=== PATIENT | female | born 1990 | race Caucasian/White ===

== ENCOUNTER 2024-02-17 18:41 | Inpatient (IN) | payer OTHER, SELFPAY ==
[2024-02-17 20:00] VITALS: BP 106/64; PULSE 88; RESP 16; TEMP 38.1; O2SAT 98
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
[2024-02-17 22:14] VITALS: BMI 19.6
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
[2024-02-17] MEDS: Hydrocortisone 2.5 % Rectal Cr 30 GM TUBE 1 APPL PR (22:46)
[2024-02-17] MEDS: Mirtazapine 7.5 MG TABLET PO (22:47)
[2024-02-18 00:05] LABS: CDiff Gene PCR NEGATIVE (Negative)
--- NOTE | 2024-02-18 07:20 | PHA.MEDREC ---
Pharmacy Consult ? Medication Reconciliation Pharmacy reviewed med rec done by nursing. No Known Home Meds confirmed and after looking in claims and updating it, it does not look like the patient is taking anything right now.
[2024-02-18 07:40] VITALS: BP 105/62; PULSE 66; RESP 14; TEMP 36.4; O2SAT 96
--- NOTE | 2024-02-18 09:22 | P.HPPS_ITS ---
HPI Date of Service: 02/18/24 Chief Complaint: Alcohol abuse Sources of Information: patient interviewed, chart reviewed and crisis/core team assessment reviewed HPI Subjective Notes: Pitts Warning and Conditional Voluntary Narrative: Patient is a 33-year-old female with history of MDD, PTSD, opiate use disorder, cocaine use disorder, alcohol use disorder and polysubstance use disorder who presented to ER due to suicidal ideation secondary to increased depression from not having her medications and life stressors. Per crisis report, patient arrived to ER making vague suicidal statements, reporting severe depression and anxiety. patient reports being discharged from [facility] correctional facility 2 days ago and not receiving her medications. She reported experiencing brain zaps due to being off Effexor. denies SI/HI/AH/VH. She reports drinking daily and using various substances. Utox positive for cocaine and fentanyl. Patient does not have any outpatient psychiatric providers. Her last inpatient psychiatric admission was in 2008. During admission assessment, patient presents alert and oriented x3, calm and cooperative. Patient reports feeling anxious and depressed ; patient stated, I came to the hospital to detox and get mental health meds. I wake up with anxiety. I do not think anything is making me depressed, I have just always been depressed. I want to go to a substance abuse program . Patient reports drinking a sleeve of nips daily, using 5 bundles of fentanyl daily, smoking crack daily, taking benzodiazepines (xanax and ativan) and taking LSD every few days. denies SI/HI/VH/AH. She reports leaving a correctional facility on the and not receiving her medications while in the correctional facility. She can not recall past medications or dosages. However, she does reports she was taking Effexor recently. Patient reports it was difficult to tell if Effexor was beneficial due to continued substance use. She reports history of section 35 from 11/24/23-12/24/23; she reports relapsing due to going back to the same places and knowing the same people . Patient is requesting referrals to outpatient providers and being restarted on Effexor. Past Psychiatric History: pt reports hx of SI attempts via OD; last attempt was in 2020. hx of cutting; last occurrence was in 2011. She reports hx of multiple detox and inpatient psychiatric admissions. does not have outpatient providers at this time. can not recall past medication trials. Medical Evaluation Reviewed: Yes PMFSH Medical History (Updated 02/18/24 @ 15:33 by Ewa Hernandez NP) Mild intermittent asthma Hepatitis C Polysubstance abuse Family History: Mother: Bipolar d/o Father: Depression Social History: homeless. single. 2 kids (11,13 y/o. live with her mother in [place]). disability. Substance History: hx of fentanyl, crack, LSD, marijuana, alcohol, mushrooms, heroin, benzodiazepines. Trauma History: yes Diagnostics Vital Signs (24Hr): Vital Signs - 24 hr 02/17/24 20:00 02/18/24 07:40 Temperature 100.5 F H 97.5 F Pulse Rate 88 66 Respiratory Rate 16 14 Blood Pressure 106/64 105/62 Pulse Oximetry 98 96 Oxygen Delivery Method Room Air Room Air BMI result Body Mass Index 19.6 Labs Labs: Laboratory Results - last 48 hr 02/17/24 23:00 C. difficile Tox B Gene NEGATIVE Meds/Allergies Meds Home Medications ?Medication ?Instructions ?Recorded ?Confirmed ?Type No Known Home Meds 02/17/24 02/17/24 History Allergies Allergies Allergy/AdvReac Type Severity Reaction Status Date / Time Unable to Assess Allergy Verified 02/17/24 18:58 Mental Status Exam Mental Status Exam Narrative: Pt is alert and oriented; behavior is cooperative, calm; dressed in casual attire; mood is described as anxious and depressed ; eye contact appropriate; Speech is normal rate, volume and not pressured; thought process is organized and goal directed; Thought content is on tx; denies SI/HI/VH/AH. Assessment & Plan Assessment & Plan (1) MDD (major depressive disorder), recurrent episode, severe: Status: Acute Code(s): F33.2 - Major depressive disorder, recurrent severe without psychotic features (2) PTSD (post-traumatic stress disorder): Status: Acute Code(s): F43.10 - Post-traumatic stress disorder, unspecified (3) Opioid use disorder: Status: Acute Code(s): F11.90 - Opioid use, unspecified, uncomplicated (4) Cocaine use disorder: Status: Acute Code(s): F14.10 - Cocaine abuse, uncomplicated (5) Alcohol use disorder: Status: Acute Code(s): F10.90 - Alcohol use, unspecified, uncomplicated (6) Benzodiazepine abuse: Status: Acute Code(s): F13.10 - Sedative, hypnotic or anxiolytic abuse, uncomplicated (7) Polysubstance abuse: Status: Acute Code(s): F19.10 - Other psychoactive substance abuse, uncomplicated (8) Homelessness: Status: Acute Code(s): Z59.00 - Homelessness unspecified Plan Patient is a 33-year-old female with history of MDD, PTSD, opiate use disorder, cocaine use disorder, alcohol use disorder and polysubstance use disorder who presented to ER due to suicidal ideation secondary to increased depression from not having her medications and life stressors. Plan: CV 15 minute safety checks Start: Effexor XR 37.5 mg p.o. daily Encourage groups Obtain collateral Consult to addiction medicine Referral to outpatient psychiatric providers Discharge planning Patient educated on: diagnosis, medication risk/benefits and substance abuse Reason for continued inpatient stay Substantial Risk for: med/psych decompensation Statement Statement: I have reviewed the history and physical and performed a pertinent examination on my patient. No changes have occurred unless specified. If the History and Physical was not performed prior to admission, the Hospitalist's service will be consulted for completing the admission physical. Time Spent With Patient Time: Total time managing care of this patient today _60___ minutes.
--- NOTE | 2024-02-18 13:55 | MHC.RECOVRN ---
Met with pt in 319 after receiving Addiction Medicine consult and text from RN that pt is interested in Suboxone initiation. Pt sitting on bed, awake, alert, easily engages in conversation, appears comfortable. Pt reports heroin/fentanyl use, 5 bundles daily, IN, last use 02/16/24 while at [facility]. Pt reports crack cocaine use, 7 grams daily, INH. Pt reports various benzodiazepine use, typically around 3 mg Ativan per week, PO. Pt reports she was Sect 35 at [place] from 11/24/23-12/24/23. Pt [facility] from 01[facility]24-02/10/24. Presented to [facility] on 02/11/24. Pt reports she used substances in [place] as well as when she was in snf. Pt reports being on methadone and Suboxone in the past, most recently transitioned from methadone to Suboxone while at [facility] [place]. Pt reports last receiving Suboxone in early January. Pt currently reports withdrawal symptoms including back pain/body aches, feeling hot/cold, restless, nausea, and diarrhea. Pt, however, does not think diarrhea is related to withdrawal. Pt is interested in restarting Suboxone. Denies other questions or concerns for t/w. Discussed with Shannen Whalen APRN.
[2024-02-18] MEDS: Venlafaxine HCl ER 37.5 MG CAP.ER.24H PO (15:57)
[2024-02-18] MEDS: Acetaminophen 325 MG TABLET 650 MG PO (15:57)
[2024-02-18] MEDS: Loperamide HCl 2 MG CAPSULE 4 MG PO (15:58)
[2024-02-18] MEDS: Magnesium Hydrox/Alum Hydrox 30 ML ORAL.SUSP PO (15:58)
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
[2024-02-18 21:00] VITALS: BP 110/68; PULSE 72; RESP 16; TEMP 36.6; O2SAT 97
[2024-02-18] MEDS: cloNIDine HCL 0.1 MG TABLET PO (21:34)
[2024-02-18] MEDS: Mirtazapine 7.5 MG TABLET PO (21:34)
[2024-02-19 07:20] VITALS: BP 106/62; PULSE 77; RESP 16; TEMP 36.9; O2SAT 98
[2024-02-19] MEDS: Acetaminophen 325 MG TABLET 650 MG PO (08:43)
[2024-02-19] MEDS: cloNIDine HCL 0.1 MG TABLET PO ×3 (08:43→21:50)
[2024-02-19] MEDS: Buprenorphine/Naloxone 8/2 mg FILM 2 FILM SUBLINGUAL (08:43)
[2024-02-19] MEDS: Venlafaxine HCl ER 37.5 MG CAP.ER.24H PO (08:43)
[2024-02-19] MEDS: Ondansetron ODT 8 MG TAB.RAPDIS TRANSLINGU (08:43)
--- NOTE | 2024-02-19 09:02 | HO.PSYCHPN ---
Subjective Subjective Date of Service: 02/19/24 Reason For Visit: Alcohol abuse Subjective Notes: Conditional Voluntary Interim History: Active on unit, attending groups. pt reports feeling better with withdrawal symptoms after taking suboxone. She continues to report depression and anxiety; pt stated, I want to get into a program and go to a sober house then go to [place] so I can be sober when I'm with my kids . Pt reports sleeping well last night. denies SI/HI/VH/AH. Medication Compliance: Yes Side effects from medications: No Attending Groups: Yes Review of Systems Constitutional: Reports as per HPI Eyes: Reports as per HPI Reports as per HPI Cardiovascular: Reports as per HPI Respiratory: Reports as per HPI Gastrointestinal: Reports as per HPI Musculoskeletal: Reports as per HPI Skin/Breast: Reports as per HPI Reports as per HPI Psychiatric: Reports as per HPI Endocrine: Reports as per HPI Hematologic/Lymphatic: Reports as per HPI Allergic/Immunologic: Reports as per HPI Mental Status Exam Mental Status Exam Narrative: Pt is alert and oriented; behavior is cooperative, calm; dressed in casual attire; mood is described as anxious and depressed ; eye contact appropriate; Speech is normal rate, volume and not pressured; thought process is organized and goal directed; Thought content is on tx; denies SI/HI/VH/AH. Diagnostics Vital Signs (24Hr): Vital Signs - 24 hr 02/18/24 21:00 02/19/24 07:20 Temperature 97.8 F 98.5 F Pulse Rate 72 77 Respiratory Rate 16 16 Blood Pressure 110/68 106/62 Pulse Oximetry 97 98 Oxygen Delivery Method Room Air Room Air BMI result Body Mass Index 19.6 Labs Labs: Laboratory Results - last 48 hr 02/17/24 23:00 C. difficile Tox B Gene NEGATIVE Medications Medications Current Medications Acetaminophen (Acetaminophen 325 Mg Tablet) 650 mg PO Q6H PRN PRN Reason: Headache/Pain Mild Scale (1-3) Last Admin: 02/19/24 08:43 Dose: 650 mg Al Hydroxide/Mg Hydroxide (Magnesium Hydrox/Alum Hydrox 30 Ml Oral.Susp) 30 ml PO Q6H PRN PRN Reason: Heartburn/Nausea Last Admin: 02/18/24 15:58 Dose: 30 ml Albuterol Sulfate (Albuterol Sulfate 90 Mcg 8 Gm Inhaler) 2 puff INHALE RQ4H PRN PRN Reason: Shortness of Breath/Wheezing Clonidine HCl (Clonidine Hcl 0.1 Mg Tablet) 0.1 mg PO Q4H PRN; Protocol PRN Reason: signs of opioid withdrawal Last Admin: 02/19/24 08:43 Dose: 0.1 mg Dicyclomine HCl (Dicyclomine Hcl 10 Mg Capsule) 10 mg PO QIDACHS PRN PRN Reason: spasm Hydrocortisone (Hydrocortisone 2.5 % Rectal Cr 30 Gm Tube) 1 appl [place] BID [facility] Last Admin: 02/19/24 09:02 Dose: Not Given Hydroxyzine HCl (Hydroxyzine Hcl 25 Mg Tablet) 25 mg PO Q6H PRN PRN Reason: Anxiety Ibuprofen (Ibuprofen 600 Mg Tablet) 600 mg PO Q6H PRN PRN Reason: pain (pain scale 0-10) Loperamide HCl (Loperamide Hcl 2 Mg Capsule) 4 mg PO Q4H PRN PRN Reason: Diarrhea Last Admin: 02/18/24 15:58 Dose: 4 mg Magnesium Hydroxide (Milk Of Magnesia 30 Ml Oral.Susp) 30 ml PO DAILY PRN PRN Reason: Constipation Mirtazapine (Mirtazapine 7.5 Mg Tablet) 7.5 mg PO BEDTIME MRX1 [facility] Last Admin: 02/18/24 22:13 Dose: Not Given Nicotine (Nicotine 21 Mg Patch.Td24) 21 mg TRANSDERMA DAILY [facility] Last Admin: 02/18/24 11:21 Dose: Not Given Nicotine Polacrilex (Nicotine Polacrilex 2 Mg Gum) 4 mg BUCCAL Q2H PRN PRN Reason: Nicotine Cravings Ondansetron HCl (Ondansetron Odt 8 Mg Tab.Rapdis) 8 mg TRANSLINGU Q12H PRN PRN Reason: Nausea and Vomiting Last Admin: 02/19/24 08:43 Dose: 8 mg Venlafaxine HCl (Venlafaxine Hcl Er 37.5 Mg Cap.Er.24h) 37.5 mg PO DAILY [facility] Last Admin: 02/19/24 08:43 Dose: 37.5 mg Allergies Allergies Allergy/AdvReac Type Severity Reaction Status Date / Time Unable to Assess Allergy Verified 02/17/24 18:58 Assessment & Plan Assessment & Plan (1) MDD (major depressive disorder), recurrent episode, severe: Status: Acute Code(s): F33.2 - Major depressive disorder, recurrent severe without psychotic features (2) PTSD (post-traumatic stress disorder): Status: Acute Code(s): F43.10 - Post-traumatic stress disorder, unspecified (3) Opioid use disorder: Status: Acute Code(s): F11.90 - Opioid use, unspecified, uncomplicated Assessment and Plan: patient not yet ready for suboxone start--requesting to start in the morning continue comfort meds as needed in AM 16mg suboxone X1. After 30-40mins is sx do not improve/or worsen administer additional 8mg film. Continue up to 32mg total administered. will continue to follow until therapeutic dose established (4) Cocaine use disorder: Status: Acute Code(s): F14.10 - Cocaine abuse, uncomplicated (5) Alcohol use disorder: Status: Acute Code(s): F10.90 - Alcohol use, unspecified, uncomplicated (6) Benzodiazepine abuse: Status: Acute Code(s): F13.10 - Sedative, hypnotic or anxiolytic abuse, uncomplicated (7) Homelessness: Status: Acute Code(s): Z59.00 - Homelessness unspecified Plan Patient is a 33-year-old female with history of MDD, PTSD, opiate use disorder, cocaine use disorder, alcohol use disorder and polysubstance use disorder who presented to ER due to suicidal ideation secondary to increased depression from not having her medications and life stressors. Plan: CV 15 minute safety checks Start: Effexor XR 37.5 mg p.o. daily Encourage groups Obtain collateral Consult to addiction medicine Referral to outpatient psychiatric providers Discharge planning 02/18: Active on unit, attending groups. pt reports feeling better with withdrawal symptoms after taking suboxone. She continues to report depression and anxiety; pt stated, I want to get into a program and go to a sober house then go to [place] so I can be sober when I'm with my kids . Pt reports sleeping well last night. denies SI/HI/VH/AH. Patient educated on: diagnosis, medication risk/benefits and therapeutic strategies Reason for continued inpatient stay Substantial Risk for: med/psych decompensation Time Spent With Patient Time: Total time managing care of this patient today _20___ minutes.
[2024-02-19] MEDS: Loperamide HCl 2 MG CAPSULE 4 MG PO (09:08)
--- NOTE | 2024-02-19 10:10 | MHC.RECOVRN ---
AUDIT-C Brief Intervention Pt had positive screen for unhealthy alcohol use on admission, subsequently met with t/w to discuss alcohol use and recovery supports/options. This policy writer typist met with patient to discuss current alcohol use and concerns related to increased risk of alcohol related problems.? Pt reports 10 nips whiskey daily x 1 year. Discussed how alcohol use has impacted health, including negative impact on overall mental health. Withdrawal History: reports history of withdrawal seizures Treatment History: denies treatment for alcohol use Supports:?mom Discussed risk reduction strategies including drinking below the recommended limit. Provided pt with written resources including information on inpatient and outpatient treatment, ERNESTINE, harm reduction, and recovery coaching. Pt plans to continue inpatient treatment and eventually move to [place] to be with mom and children. Pt provided with t/w contact information if questions or concerns arise. Denies other questions or concerns at this time.?
--- NOTE | 2024-02-19 10:12 | MHC.RECOVRN ---
Met with pt in 319 to follow up after Suboxone initiation. Pt laying in bed, awake, alert, easily engages in conversation. Denies current withdrawal symptoms. Pt reports prior to receiving Suboxone having nausea, diarrhea, feeling hot/cold, and watery eyes. Pt states I feel normal now. Denies questions or concerns for t/w. Shannen Whalen APRN, aware.
--- NOTE | 2024-02-19 12:22 | HO.ADDICTPRO ---
Subjective Subjective Date of Service: 02/19/24 Reason For Visit: Alcohol abuse Interim History: Patient seen in follow up This morning recieved 16mg suboxone with positive effect per patient report and evidenced by patient in [place] and eating breakfast When seen by this automotive service writer several hours later, patient in bed, stating she feels cold. Reporting she doesn't feel terrible , but not as good as she was feeling earlier. Denies any other possible withdrawal sx Review of Systems Constitutional: Reports as per HPI Mental Status Exam Mental Status Exam Patient Appearance: Appropriate Level of Consciousness: Awake and Appropriate Patient Behavior: Appropriate Mood Description: Calm Affect Description: Calm Speech Pattern: Clear Diagnostics Vital Signs (24Hr): Vital Signs - 24 hr 02/18/24 21:00 02/19/24 07:20 Temperature 97.8 F 98.5 F Pulse Rate 72 77 Respiratory Rate 16 16 Blood Pressure 110/68 106/62 Pulse Oximetry 97 98 Oxygen Delivery Method Room Air Room Air BMI result Body Mass Index 19.6 Labs Labs: Laboratory Results - last 48 hr 02/17/24 23:00 C. difficile Tox B Gene NEGATIVE Medications Medications Current Medications Acetaminophen (Acetaminophen 325 Mg Tablet) 650 mg PO Q6H PRN PRN Reason: Headache/Pain Mild Scale (1-3) Last Admin: 02/19/24 08:43 Dose: 650 mg Al Hydroxide/Mg Hydroxide (Magnesium Hydrox/Alum Hydrox 30 Ml Oral.Susp) 30 ml PO Q6H PRN PRN Reason: Heartburn/Nausea Last Admin: 02/18/24 15:58 Dose: 30 ml Albuterol Sulfate (Albuterol Sulfate 90 Mcg 8 Gm Inhaler) 2 puff INHALE RQ4H PRN PRN Reason: Shortness of Breath/Wheezing Clonidine HCl (Clonidine Hcl 0.1 Mg Tablet) 0.1 mg PO Q4H PRN; Protocol PRN Reason: signs of opioid withdrawal Last Admin: 02/19/24 08:43 Dose: 0.1 mg Dicyclomine HCl (Dicyclomine Hcl 10 Mg Capsule) 10 mg PO QIDACHS PRN PRN Reason: spasm Hydrocortisone (Hydrocortisone 2.5 % Rectal Cr 30 Gm Tube) 1 appl [place] BID [facility] Last Admin: 02/19/24 09:02 Dose: Not Given Hydroxyzine HCl (Hydroxyzine Hcl 25 Mg Tablet) 25 mg PO Q6H PRN PRN Reason: Anxiety Ibuprofen (Ibuprofen 600 Mg Tablet) 600 mg PO Q6H PRN PRN Reason: pain (pain scale 0-10) Loperamide HCl (Loperamide Hcl 2 Mg Capsule) 4 mg PO Q4H PRN PRN Reason: Diarrhea Last Admin: 02/19/24 09:08 Dose: 4 mg Magnesium Hydroxide (Milk Of Magnesia 30 Ml Oral.Susp) 30 ml PO DAILY PRN PRN Reason: Constipation Mirtazapine (Mirtazapine 7.5 Mg Tablet) 7.5 mg PO BEDTIME MRX1 [facility] Last Admin: 02/18/24 22:13 Dose: Not Given Nicotine (Nicotine 21 Mg Patch.Td24) 21 mg TRANSDERMA DAILY [facility] Last Admin: 02/19/24 09:09 Dose: Not Given Nicotine Polacrilex (Nicotine Polacrilex 2 Mg Gum) 4 mg BUCCAL Q2H PRN PRN Reason: Nicotine Cravings Ondansetron HCl (Ondansetron Odt 8 Mg Tab.Rapdis) 8 mg TRANSLINGU Q12H PRN PRN Reason: Nausea and Vomiting Last Admin: 02/19/24 08:43 Dose: 8 mg Venlafaxine HCl (Venlafaxine Hcl Er 37.5 Mg Cap.Er.24h) 37.5 mg PO DAILY [facility] Last Admin: 02/19/24 08:43 Dose: 37.5 mg Allergies Allergies Allergy/AdvReac Type Severity Reaction Status Date / Time Unable to Assess Allergy Verified 02/17/24 18:58 Assessment & Plan Assessment & Plan (1) Opioid use disorder: Status: Acute Code(s): F11.90 - Opioid use, unspecified, uncomplicated Assessment and Plan: suboxone 8mg PRN dose available if patient requests daily dosing 8mg BID --patient reports this dose has been effective in the past PRN meds as appropriate Total time managing care of this patient today __15__ minutes.
[2024-02-19] MEDS: Ibuprofen 600 MG TABLET PO ×2 (13:31→21:50)
[2024-02-19 13:32] VITALS: BP 90/51
[2024-02-19 20:00] VITALS: BP 77/51; PULSE 65; RESP 14; TEMP 36.8; O2SAT 99
[2024-02-19 20:05] VITALS: BP 95/56
[2024-02-19 21:50] VITALS: BP 97/56
[2024-02-19] MEDS: Mirtazapine 7.5 MG TABLET PO (21:50)
[2024-02-20 08:00] VITALS: PULSE 69
[2024-02-20 08:30] VITALS: BP 97/55; PULSE 69; RESP 18; TEMP 36.4; O2SAT 99
[2024-02-20] MEDS: Venlafaxine HCl ER 37.5 MG CAP.ER.24H PO (08:31)
[2024-02-20] MEDS: Buprenorphine/Naloxone 8/2 mg FILM 1 FILM SUBLINGUAL ×3 (08:32→16:55)
--- NOTE | 2024-02-20 09:32 | P.PNPSI_ITS ---
Subjective Subjective Date of Service: 02/20/24 Reason For Visit: Alcohol abuse Subjective Notes: Conditional Voluntary Interim History: Keeping to self. Pt reports feeling better physically from withdrawal symptoms, however, continues to report anxiety and depression. Pt stated, I'm not even tired but I feel like I have no motivation to get out of bed and go to groups . Pt reports she will try to attend groups today rather than staying in her room. denies SI/HI/VH/AH. Increase Effexor to 75mg PO daily Start: Buspar 5mg PO BID Medication Compliance: Yes Side effects from medications: No Attending Groups: No Review of Systems Constitutional: Reports as per HPI Eyes: Reports as per HPI Reports as per HPI Cardiovascular: Reports as per HPI Respiratory: Reports as per HPI Gastrointestinal: Reports as per HPI Musculoskeletal: Reports as per HPI Skin/Breast: Reports as per HPI Reports as per HPI Psychiatric: Reports as per HPI Endocrine: Reports as per HPI Hematologic/Lymphatic: Reports as per HPI Allergic/Immunologic: Reports as per HPI Mental Status Exam Mental Status Exam Narrative: Pt is alert and oriented; behavior is cooperative, calm; dressed in casual attire; mood is described as anxious and depressed ; eye contact appropriate; Speech is normal rate, volume and not pressured; thought process is organized and goal directed; Thought content is on tx; denies SI/HI/VH/AH. Diagnostics Vital Signs (24Hr): Vital Signs - 24 hr 02/19/24 13:32 02/19/24 20:00 02/19/24 20:05 Temperature 98.2 F Pulse Rate 65 Respiratory Rate 14 Blood Pressure 90/51 L 77/51 L 95/56 L Pulse Oximetry 99 Oxygen Delivery Method Room Air 02/19/24 21:50 02/20/24 08:30 Temperature 97.6 F Pulse Rate 69 Respiratory Rate 18 Blood Pressure 97/56 L 97/55 L Pulse Oximetry 99 Oxygen Delivery Method Room Air BMI result Body Mass Index 19.6 Medications Medications Current Medications Acetaminophen (Acetaminophen 325 Mg Tablet) 650 mg PO Q6H PRN PRN Reason: Headache/Pain Mild Scale (1-3) Last Admin: 02/19/24 08:43 Dose: 650 mg Al Hydroxide/Mg Hydroxide (Magnesium Hydrox/Alum Hydrox 30 Ml Oral.Susp) 30 ml PO Q6H PRN PRN Reason: Heartburn/Nausea Last Admin: 02/18/24 15:58 Dose: 30 ml Albuterol Sulfate (Albuterol Sulfate 90 Mcg 8 Gm Inhaler) 2 puff INHALE RQ4H PRN PRN Reason: Shortness of Breath/Wheezing Buprenorphine/Naloxone (Buprenorphine/Naloxone 8/2 Mg Film) 1 film SUBLINGUAL DAILY PRN PRN Reason: Opiate Withdrawal Buprenorphine/Naloxone (Buprenorphine/Naloxone 8/2 Mg Film) 1 film SUBLINGUAL BID@0800,1700 COUNTS INCLUDE 234 BEDS AT THE [facility] Last Admin: 02/20/24 08:32 Dose: 1 film Clonidine HCl (Clonidine Hcl 0.1 Mg Tablet) 0.1 mg PO Q4H PRN; Protocol PRN Reason: signs of opioid withdrawal Last Admin: 02/19/24 21:50 Dose: 0.1 mg Dicyclomine HCl (Dicyclomine Hcl 10 Mg Capsule) 10 mg PO QIDACHS PRN PRN Reason: spasm Hydrocortisone (Hydrocortisone 2.5 % Rectal Cr 30 Gm Tube) [address] BID COUNTS INCLUDE 234 BEDS AT THE [facility] Last Admin: 02/20/24 08:33 Dose: Not Given Hydroxyzine HCl (Hydroxyzine Hcl 25 Mg Tablet) 25 mg PO Q6H PRN PRN Reason: Anxiety Ibuprofen (Ibuprofen 600 Mg Tablet) 600 mg PO Q6H PRN PRN Reason: pain (pain scale 0-10) Last Admin: 02/19/24 21:50 Dose: 600 mg Loperamide HCl (Loperamide Hcl 2 Mg Capsule) 4 mg PO Q4H PRN PRN Reason: Diarrhea Last Admin: 02/19/24 09:08 Dose: 4 mg Magnesium Hydroxide (Milk Of Magnesia 30 Ml Oral.Susp) 30 ml PO DAILY PRN PRN Reason: Constipation Mirtazapine (Mirtazapine 7.5 Mg Tablet) 7.5 mg PO BEDTIME MRX1 COUNTS INCLUDE 234 BEDS AT THE [facility] Last Admin: 02/19/24 23:03 Dose: Not Given Nicotine (Nicotine 21 Mg Patch.Td24) 21 mg TRANSDERMA DAILY COUNTS INCLUDE 234 BEDS AT THE [facility] Last Admin: 02/20/24 08:33 Dose: Not Given Nicotine Polacrilex (Nicotine Polacrilex 2 Mg Gum) 4 mg BUCCAL Q2H PRN PRN Reason: Nicotine Cravings Ondansetron HCl (Ondansetron Odt 8 Mg Tab.Rapdis) 8 mg TRANSLINGU Q12H PRN PRN Reason: Nausea and Vomiting Last Admin: 02/19/24 08:43 Dose: 8 mg Venlafaxine HCl (Venlafaxine Hcl Er 37.5 Mg Cap.Er.24h) 37.5 mg PO DAILY [facility] Last Admin: 02/20/24 08:31 Dose: 37.5 mg Allergies Allergies Allergy/AdvReac Type Severity Reaction Status Date / Time Unable to Assess Allergy Verified 02/17/24 18:58 Assessment & Plan Assessment & Plan (1) MDD (major depressive disorder), recurrent episode, severe: Status: Acute Code(s): F33.2 - Major depressive disorder, recurrent severe without psychotic features (2) PTSD (post-traumatic stress disorder): Status: Acute Code(s): F43.10 - Post-traumatic stress disorder, unspecified (3) Opioid use disorder: Status: Acute Code(s): F11.90 - Opioid use, unspecified, uncomplicated Assessment and Plan: * suboxone 8mg PRN dose available if patient requests * daily dosing 8mg BID --patient reports this dose has been effective in the past * PRN meds as appropriate (4) Alcohol use disorder: Status: Acute Code(s): F10.90 - Alcohol use, unspecified, uncomplicated (5) Cocaine use disorder: Status: Acute Code(s): F14.10 - Cocaine abuse, uncomplicated (6) Benzodiazepine abuse: Status: Acute Code(s): F13.10 - Sedative, hypnotic or anxiolytic abuse, uncomplicated (7) Homelessness: Status: Acute Code(s): Z59.00 - Homelessness unspecified Plan Patient is a 33-year-old female with history of MDD, PTSD, opiate use disorder, cocaine use disorder, alcohol use disorder and polysubstance use disorder who presented to ER due to suicidal ideation secondary to increased depression from not having her medications and life stressors. Plan: CV 15 minute safety checks Start: Effexor XR 37.5 mg p.o. daily Encourage groups Obtain collateral Consult to addiction medicine Referral to outpatient psychiatric providers Discharge planning 02/18: Active on unit, attending groups. pt reports feeling better with withdrawal symptoms after taking suboxone. She continues to report depression and anxiety; pt stated, I want to get into a program and go to a sober house then go to [place] so I can be sober when I'm with my kids . Pt reports sleeping well last night. denies SI/HI/VH/AH. 02/19: Keeping to self. Pt reports feeling better physically from withdrawal symptoms, however, continues to report anxiety and depression. Pt stated, I'm not even tired but I feel like I have no motivation to get out of bed and go to groups . Pt reports she will try to attend groups today rather than staying in her room. denies SI/HI/VH/AH. Increase Effexor to 75mg PO daily Start: Buspar 5mg PO BID Patient educated on: diagnosis, medication risk/benefits and therapeutic strategies Reason for continued inpatient stay Substantial Risk for: med/psych decompensation Time Spent With Patient Time: Total time managing care of this patient today _20___ minutes.
--- NOTE | 2024-02-20 10:52 | MHC.RECOVRN ---
Met with pt in 319 to follow up and provide support. Pt received Suboxone, 8 mg, this morning. Has not utilized prn Suboxone ordered. Pt laying in bed, eyes closed, wakes to voice, appears comfortable and easily engages in conversation. Pt reports feeling great, denies withdrawal symptoms, grateful to have been restarted on [facility]. Pt denies questions or concerns for t/w. Shannen Whalen APRN, aware.
[2024-02-20] MEDS: busPIRone HCl 5 MG TABLET PO ×2 (14:27→20:32)
[2024-02-20 16:00] VITALS: PULSE 69
[2024-02-20 19:55] VITALS: BP 128/66; PULSE 86; RESP 14; TEMP 37.3; O2SAT 98
[2024-02-20] MEDS: Ibuprofen 600 MG TABLET PO (20:32)
[2024-02-20] MEDS: Mirtazapine 7.5 MG TABLET PO (20:32)
[2024-02-21 07:10] VITALS: BP 105/66; PULSE 78; RESP 14; TEMP 37.1; O2SAT 98
[2024-02-21 07:17] VITALS: BP 105/66
[2024-02-21] MEDS: cloNIDine HCL 0.1 MG TABLET PO ×2 (07:17→11:26)
--- NOTE | 2024-02-21 07:39 | P.PNPSI_ITS ---
Subjective Subjective Date of Service: 02/21/24 Reason For Visit: Alcohol abuse Subjective Notes: Conditional Voluntary Interim History: overall doing okay without evidence of withdrawal. Is depressed and anxious and withdrawn. Attending some groups. Intermittent thoughts of but no active SI. Hopeful she can speak with her primary team around Adderall which she has been on in the past and reports this helps with overall anxiety and decreased in OCD type thoughts and behaviors. Tearful. Regarding anxiety we discussed gabapentin. Reports unable to take clonidine at higher doses due to blood pressure issues. Reported hallucinating and Seroquel. Review of Systems Review of Systems unremarkable Mental Status Exam Mental Status Exam Narrative: Pt is alert and oriented; behavior is cooperative, calm; dressed in casual attire; mood is described as so anxious ; eye contact appropriate; Speech is normal rate, volume and not pressured; thought process is organized and goal directed; Thought content is on tx; denies SI/HI/VH/AH. Diagnostics Vital Signs (24Hr): Vital Signs - 24 hr 02/20/24 08:30 02/20/24 19:55 02/21/24 07:17 Temperature 97.6 F 99.1 F Pulse Rate 69 86 Respiratory Rate 18 14 Blood Pressure 97/55 L 128/66 105/66 Pulse Oximetry 99 98 Oxygen Delivery Method Room Air Room Air BMI result Body Mass Index 19.6 Medications Medications Current Medications Acetaminophen (Acetaminophen 325 Mg Tablet) 650 mg PO Q6H PRN PRN Reason: Headache/Pain Mild Scale (1-3) Last Admin: 02/19/24 08:43 Dose: 650 mg Al Hydroxide/Mg Hydroxide (Magnesium Hydrox/Alum Hydrox 30 Ml Oral.Susp) 30 ml PO Q6H PRN PRN Reason: Heartburn/Nausea Last Admin: 02/18/24 15:58 Dose: 30 ml Albuterol Sulfate (Albuterol Sulfate 90 Mcg 8 Gm Inhaler) 2 puff INHALE RQ4H PRN PRN Reason: Shortness of Breath/Wheezing Buprenorphine/Naloxone (Buprenorphine/Naloxone 8/2 Mg Film) 1 film SUBLINGUAL DAILY PRN PRN Reason: Opiate Withdrawal Last Admin: 02/20/24 14:27 Dose: 1 film Buprenorphine/Naloxone (Buprenorphine/Naloxone 8/2 Mg Film) 1 film SUBLINGUAL BID@0800,1700 [facility] Last Admin: 02/20/24 16:55 Dose: 1 film Buspirone HCl (Buspirone Hcl 5 Mg Tablet) 5 mg PO BID [facility] Last Admin: 02/20/24 20:32 Dose: 5 mg Clonidine HCl (Clonidine Hcl 0.1 Mg Tablet) 0.1 mg PO Q4H PRN; Protocol PRN Reason: signs of opioid withdrawal Last Admin: 02/21/24 07:17 Dose: 0.1 mg Dicyclomine HCl (Dicyclomine Hcl 10 Mg Capsule) 10 mg PO QIDACHS PRN PRN Reason: spasm Hydrocortisone (Hydrocortisone 2.5 % Rectal Cr 30 Gm Tube) 1 appl [place] BID [facility] Last Admin: 02/20/24 23:30 Dose: Not Given Hydroxyzine HCl (Hydroxyzine Hcl 25 Mg Tablet) 25 mg PO Q6H PRN PRN Reason: Anxiety Ibuprofen (Ibuprofen 600 Mg Tablet) 600 mg PO Q6H PRN PRN Reason: pain (pain scale 0-10) Last Admin: 02/20/24 20:32 Dose: 600 mg Loperamide HCl (Loperamide Hcl 2 Mg Capsule) 4 mg PO Q4H PRN PRN Reason: Diarrhea Last Admin: 02/19/24 09:08 Dose: 4 mg Magnesium Hydroxide (Milk Of Magnesia 30 Ml Oral.Susp) 30 ml PO DAILY PRN PRN Reason: Constipation Mirtazapine (Mirtazapine 7.5 Mg Tablet) 7.5 mg PO BEDTIME MRX1 [facility] Last Admin: 02/20/24 23:35 Dose: Not Given Nicotine (Nicotine 21 Mg Patch.Td24) 21 mg TRANSDERMA DAILY PRN PRN Reason: Nicotine Cravings Nicotine Polacrilex (Nicotine Polacrilex 2 Mg Gum) 4 mg BUCCAL Q2H PRN PRN Reason: Nicotine Cravings Ondansetron HCl (Ondansetron Odt 8 Mg Tab.Rapdis) 8 mg TRANSLINGU Q12H PRN PRN Reason: Nausea and Vomiting Last Admin: 02/19/24 08:43 Dose: 8 mg Venlafaxine HCl (Venlafaxine Hcl Er 75 Mg Cap.Er.24h) 75 mg PO DAILY [facility] Allergies Allergies Allergy/AdvReac Type Severity Reaction Status Date / Time Unable to Assess Allergy Verified 02/17/24 18:58 Assessment & Plan Assessment & Plan (1) MDD (major depressive disorder), recurrent episode, severe: Status: Acute Code(s): F33.2 - Major depressive disorder, recurrent severe without psychotic features (2) PTSD (post-traumatic stress disorder): Status: Acute Code(s): F43.10 - Post-traumatic stress disorder, unspecified (3) Opioid use disorder: Status: Acute Code(s): F11.90 - Opioid use, unspecified, uncomplicated Assessment and Plan: * suboxone 8mg PRN dose available if patient requests * daily dosing 8mg BID --patient reports this dose has been effective in the past * PRN meds as appropriate (4) Alcohol use disorder: Status: Acute Code(s): F10.90 - Alcohol use, unspecified, uncomplicated (5) Cocaine use disorder: Status: Acute Code(s): F14.10 - Cocaine abuse, uncomplicated (6) Benzodiazepine abuse: Status: Acute Code(s): F13.10 - Sedative, hypnotic or anxiolytic abuse, uncomplicated (7) Homelessness: Status: Acute Code(s): Z59.00 - Homelessness unspecified Plan Patient is a 33-year-old female with history of MDD, PTSD, opiate use disorder, cocaine use disorder, alcohol use disorder and polysubstance use disorder who presented to ER due to suicidal ideation secondary to increased depression from not having her medications and life stressors. Plan: CV 15 minute safety checks Start: Effexor XR 37.5 mg p.o. daily Encourage groups Obtain collateral Consult to addiction medicine Referral to outpatient psychiatric providers Discharge planning 02/18: Active on unit, attending groups. pt reports feeling better with withdrawal symptoms after taking suboxone. She continues to report depression and anxiety; pt stated, I want to get into a program and go to a sober house then go to [place] so I can be sober when I'm with my kids . Pt reports sleeping well last night. denies SI/HI/VH/AH. 02/19: Keeping to self. Pt reports feeling better physically from withdrawal symptoms, however, continues to report anxiety and depression. Pt stated, I'm not even tired but I feel like I have no motivation to get out of bed and go to groups . Pt reports she will try to attend groups today rather than staying in her room. denies SI/HI/VH/AH. Increase Effexor to 75mg PO daily Start: Buspar 5mg PO BID 02/21/2024: Start gabapentin 100 mg as needed. Discontinue clonidine is unable to tolerate save due to blood pressure issues. Reason for continued inpatient stay Substantial Risk for: inability to function Time Spent With Patient Time: Total time managing care of this patient today ____ minutes.
[2024-02-21 08:00] VITALS: PULSE 78
[2024-02-21] MEDS: busPIRone HCl 5 MG TABLET PO ×2 (08:27→20:58)
[2024-02-21] MEDS: Buprenorphine/Naloxone 8/2 mg FILM 1 FILM SUBLINGUAL ×2 (08:27→16:45)
[2024-02-21] MEDS: Venlafaxine HCl ER 75 MG CAP.ER.24H PO (08:27)
[2024-02-21 11:25] VITALS: BP 100/63; PULSE 79
[2024-02-21] MEDS: Gabapentin 100 MG CAPSULE PO (16:44)
[2024-02-21 19:20] VITALS: BP 102/58; PULSE 78; RESP 15; TEMP 36.9; O2SAT 97
[2024-02-21] MEDS: Mirtazapine 7.5 MG TABLET PO (20:58)
[2024-02-21] MEDS: hydrOXYzine HCL 50 MG TABLET PO (21:02)
[2024-02-22] MEDS: Gabapentin 100 MG CAPSULE PO ×2 (04:56→11:26)
[2024-02-22 08:00] VITALS: BP 81/42; PULSE 68; RESP 16; TEMP 36.8; O2SAT 97
[2024-02-22 08:28] VITALS: BP 122/65
[2024-02-22] MEDS: Venlafaxine HCl ER 75 MG CAP.ER.24H PO (08:28)
[2024-02-22] MEDS: busPIRone HCl 5 MG TABLET PO ×2 (08:29→19:29)
[2024-02-22] MEDS: Buprenorphine/Naloxone 8/2 mg FILM 1 FILM SUBLINGUAL ×3 (08:29→17:21)
--- NOTE | 2024-02-22 10:15 | HO.PSYCHPN ---
Subjective Subjective Date of Service: 02/22/24 Reason For Visit: Alcohol abuse Subjective Notes: Conditional Voluntary Interim History: Anxiety high. Mood low. Reports lots of OCD fixations . Hopeful thatprimary team will restart adderal for ADHD. Sleep ok. Discussed anxiety- will increase prn gabapentin and reintroduce clonidine prn. Does not feel hydroxyzine is helpful so will DC same. Second and last weekly dose of fluconazole 300mg ordered for Tinea Versicolor ordered Medication Compliance: Yes Side effects from medications: No Attending Groups: Intermittent Review of Systems Acute medical concerns: No Review of Systems Review of Systems unremarkable Mental Status Exam Mental Status Exam Narrative: Pt is alert and oriented; behavior is cooperative, calm; dressed in casual attire; mood is described as anxious ; eye contact appropriate; Speech is normal rate, volume and not pressured; thought process is organized and goal directed; Thought content is on tx; denies SI/HI/VH/AH. Diagnostics Vital Signs (24Hr): Vital Signs - 24 hr 02/21/24 11:25 02/21/24 19:20 02/22/24 08:00 Temperature 98.4 F 98.3 F Pulse Rate 79 78 68 Respiratory Rate 15 16 Blood Pressure 100/63 102/58 L 81/42 L Pulse Oximetry 97 97 Oxygen Delivery Method Room Air Room Air 02/22/24 08:28 Temperature Pulse Rate Respiratory Rate Blood Pressure 122/65 Pulse Oximetry Oxygen Delivery Method BMI result Body Mass Index 19.6 Medications Medications Current Medications Acetaminophen (Acetaminophen 325 Mg Tablet) 650 mg PO Q6H PRN PRN Reason: Headache/Pain Mild Scale (1-3) Last Admin: 02/19/24 08:43 Dose: 650 mg Al Hydroxide/Mg Hydroxide (Magnesium Hydrox/Alum Hydrox 30 Ml Oral.Susp) 30 ml PO Q6H PRN PRN Reason: Heartburn/Nausea Last Admin: 02/18/24 15:58 Dose: 30 ml Albuterol Sulfate (Albuterol Sulfate 90 Mcg 8 Gm Inhaler) 2 puff INHALE RQ4H PRN PRN Reason: Shortness of Breath/Wheezing Buprenorphine/Naloxone (Buprenorphine/Naloxone 8/2 Mg Film) 1 film SUBLINGUAL DAILY PRN PRN Reason: Opiate Withdrawal Last Admin: 02/20/24 14:27 Dose: 1 film Buprenorphine/Naloxone (Buprenorphine/Naloxone 8/2 Mg Film) 1 film SUBLINGUAL BID@0800,1700 [facility] Last Admin: 02/22/24 08:29 Dose: 1 film Buspirone HCl (Buspirone Hcl 5 Mg Tablet) 5 mg PO BID [facility] Last Admin: 02/22/24 08:29 Dose: 5 mg Dicyclomine HCl (Dicyclomine Hcl 10 Mg Capsule) 10 mg PO QIDACHS PRN PRN Reason: spasm Gabapentin (Gabapentin 100 Mg Capsule) 100 mg PO Q6H PRN PRN Reason: anxiety Last Admin: 02/22/24 04:56 Dose: 100 mg Hydrocortisone (Hydrocortisone 2.5 % Rectal Cr 30 Gm Tube) 1 appl [place] BID [facility] Last Admin: 02/22/24 08:19 Dose: Not Given Hydroxyzine HCl (Hydroxyzine Hcl 50 Mg Tablet) 50 mg PO Q6H PRN PRN Reason: anxiety still after gabapentin Last Admin: 02/21/24 21:02 Dose: 50 mg Ibuprofen (Ibuprofen 600 Mg Tablet) 600 mg PO Q6H PRN PRN Reason: pain (pain scale 0-10) Last Admin: 02/20/24 20:32 Dose: 600 mg Loperamide HCl (Loperamide Hcl 2 Mg Capsule) 4 mg PO Q4H PRN PRN Reason: Diarrhea Last Admin: 02/19/24 09:08 Dose: 4 mg Magnesium Hydroxide (Milk Of Magnesia 30 Ml Oral.Susp) 30 ml PO DAILY PRN PRN Reason: Constipation Mirtazapine (Mirtazapine 7.5 Mg Tablet) 7.5 mg PO BEDTIME MRX1 [facility] Last Admin: 02/21/24 23:12 Dose: Not Given Nicotine (Nicotine 21 Mg Patch.Td24) 21 mg TRANSDERMA DAILY PRN PRN Reason: Nicotine Cravings Nicotine Polacrilex (Nicotine Polacrilex 2 Mg Gum) 4 mg BUCCAL Q2H PRN PRN Reason: Nicotine Cravings Ondansetron HCl (Ondansetron Odt 8 Mg Tab.Rapdis) 8 mg TRANSLINGU Q12H PRN PRN Reason: Nausea and Vomiting Last Admin: 02/19/24 08:43 Dose: 8 mg Venlafaxine HCl (Venlafaxine Hcl Er 75 Mg Cap.Er.24h) 75 mg PO DAILY [facility] Last Admin: 02/22/24 08:28 Dose: 75 mg Allergies Allergies Allergy/AdvReac Type Severity Reaction Status Date / Time Unable to Assess Allergy Verified 02/17/24 18:58 Assessment & Plan Assessment & Plan (1) MDD (major depressive disorder), recurrent episode, severe: Status: Acute Code(s): F33.2 - Major depressive disorder, recurrent severe without psychotic features (2) PTSD (post-traumatic stress disorder): Status: Acute Code(s): F43.10 - Post-traumatic stress disorder, unspecified (3) Opioid use disorder: Status: Acute Code(s): F11.90 - Opioid use, unspecified, uncomplicated Assessment and Plan: suboxone 8mg PRN dose available if patient requests daily dosing 8mg BID --patient reports this dose has been effective in the past PRN meds as appropriate (4) Alcohol use disorder: Status: Acute Code(s): F10.90 - Alcohol use, unspecified, uncomplicated (5) Cocaine use disorder: Status: Acute Code(s): F14.10 - Cocaine abuse, uncomplicated (6) Benzodiazepine abuse: Status: Acute Code(s): F13.10 - Sedative, hypnotic or anxiolytic abuse, uncomplicated (7) Homelessness: Status: Acute Code(s): Z59.00 - Homelessness unspecified Plan Patient is a 33-year-old female with history of MDD, PTSD, opiate use disorder, cocaine use disorder, alcohol use disorder and polysubstance use disorder who presented to ER due to suicidal ideation secondary to increased depression from not having her medications and life stressors. Plan: CV 15 minute safety checks Start: Effexor XR 37.5 mg p.o. daily Encourage groups Obtain collateral Consult to addiction medicine Referral to outpatient psychiatric providers Discharge planning 02/18: Active on unit, attending groups. pt reports feeling better with withdrawal symptoms after taking suboxone. She continues to report depression and anxiety; pt stated, I want to get into a program and go to a sober house then go to [place] so I can be sober when I'm with my kids . Pt reports sleeping well last night. denies SI/HI/VH/AH. 02/19: Keeping to self. Pt reports feeling better physically from withdrawal symptoms, however, continues to report anxiety and depression. Pt stated, I'm not even tired but I feel like I have no motivation to get out of bed and go to groups . Pt reports she will try to attend groups today rather than staying in her room. denies SI/HI/VH/AH. Increase Effexor to 75mg PO daily Start: Buspar 5mg PO BID 02/21/2024: Start gabapentin 100 mg as needed. Discontinue clonidine is unable to tolerate save due to blood pressure issues. 02/22/24: increase prn gabapentin and reintroduce clonidine prn (with hold parameters as feels its helpful compared to hydroxyzine). Does not feel hydroxyzine is helpful so will DC same. Second and last weekly dose of fluconazole 300mg ordered for Tinea Versicolor ordered Reason for continued inpatient stay Substantial Risk for: harm to self, inability to function and rapid decompensation Time Spent With Patient Time: Total time managing care of this patient today ____ minutes.
[2024-02-22] MEDS: Fluconazole 150 MG TABLET 300 MG PO (12:04)
[2024-02-22] MEDS: Gabapentin 300 MG CAPSULE PO (13:42)
[2024-02-22 15:30] VITALS: BP 114/71; PULSE 88
[2024-02-22] MEDS: cloNIDine HCL 0.1 MG TABLET PO (15:32)
[2024-02-22] MEDS: Ibuprofen 600 MG TABLET PO (17:20)
[2024-02-22 19:27] VITALS: BP 103/64; PULSE 81; RESP 18; TEMP 37.1; O2SAT 98
[2024-02-22] MEDS: Mirtazapine 7.5 MG TABLET PO (19:29)
[2024-02-23] MEDS: Gabapentin 300 MG CAPSULE PO ×3 (05:54→20:22)
[2024-02-23 08:00] VITALS: BP 109/66; PULSE 97; RESP 14; TEMP 37.3; O2SAT 98
[2024-02-23] MEDS: cloNIDine HCL 0.1 MG TABLET PO ×2 (08:16→15:36)
[2024-02-23] MEDS: Venlafaxine HCl ER 75 MG CAP.ER.24H PO (08:17)
[2024-02-23] MEDS: Nicotine 21 MG PATCH.TD24 TRANSDERMA (08:19)
[2024-02-23] MEDS: Buprenorphine/Naloxone 8/2 mg FILM 1 FILM SUBLINGUAL ×3 (08:20→17:39)
--- NOTE | 2024-02-23 10:51 | HO.PSYCHPN ---
Subjective Subjective Date of Service: 02/23/24 Reason For Visit: Alcohol abuse Subjective Notes: Conditional Voluntary Interim History: Patient reports she continues to feel anxious despite medication changes over the weekend; reports feeling okay other than anxious. denies SI/HI/VH/AH. When discussing discharging this week to possible program; pt stated, I won't go to the programs around here because other people told me they are shit. If I get discharged, I'll just walk right back into the ER and tell them I'm suicidal. I'll say what I have to say to get sectioned . Medication Compliance: Yes Side effects from medications: No Attending Groups: No Review of Systems Constitutional: Reports as per HPI Eyes: Reports as per HPI Reports as per HPI Cardiovascular: Reports as per HPI Respiratory: Reports as per HPI Gastrointestinal: Reports as per HPI Genitourinary: Reports as per HPI Musculoskeletal: Reports as per HPI Skin/Breast: Reports as per HPI Reports as per HPI Psychiatric: Reports as per HPI Endocrine: Reports as per HPI Hematologic/Lymphatic: Reports as per HPI Allergic/Immunologic: Reports as per HPI Mental Status Exam Mental Status Exam Narrative: Pt is alert and oriented; behavior is cooperative and calm; dressed in casual attire; mood is described as anxious ; eye contact appropriate; Speech is normal rate, volume and not pressured; thought process is organized; Thought content is on tx; denies SI/HI/VH/AH. Diagnostics Vital Signs (24Hr): Vital Signs - 24 hr 02/22/24 15:30 02/22/24 19:27 02/23/24 08:00 Temperature 98.7 F 99.1 F Pulse Rate 88 81 97 Respiratory Rate 18 14 Blood Pressure 114/71 103/64 109/66 Pulse Oximetry 98 98 Oxygen Delivery Method Room Air Room Air BMI result Body Mass Index 19.6 Medications Medications Current Medications Acetaminophen (Acetaminophen 325 Mg Tablet) 650 mg PO Q6H PRN PRN Reason: Headache/Pain Mild Scale (1-3) Last Admin: 02/19/24 08:43 Dose: 650 mg Al Hydroxide/Mg Hydroxide (Magnesium Hydrox/Alum Hydrox 30 Ml Oral.Susp) 30 ml PO Q6H PRN PRN Reason: Heartburn/Nausea Last Admin: 02/18/24 15:58 Dose: 30 ml Albuterol Sulfate (Albuterol Sulfate 90 Mcg 8 Gm Inhaler) 2 puff INHALE RQ4H PRN PRN Reason: Shortness of Breath/Wheezing Buprenorphine/Naloxone (Buprenorphine/Naloxone 8/2 Mg Film) 1 film SUBLINGUAL DAILY PRN PRN Reason: Opiate Withdrawal Last Admin: 02/22/24 13:42 Dose: 1 film Buprenorphine/Naloxone (Buprenorphine/Naloxone 8/2 Mg Film) 1 film SUBLINGUAL BID@0800,1700 [facility] Last Admin: 02/23/24 08:20 Dose: 1 film Buspirone HCl (Buspirone Hcl 5 Mg Tablet) 5 mg PO BID [facility] Last Admin: 02/23/24 08:34 Dose: Not Given Clonidine HCl (Clonidine Hcl 0.1 Mg Tablet) 0.1 mg PO Q6H PRN; Protocol PRN Reason: if anxiety after gabapentin Last Admin: 02/23/24 08:16 Dose: 0.1 mg Dicyclomine HCl (Dicyclomine Hcl 10 Mg Capsule) 10 mg PO QIDACHS PRN PRN Reason: spasm Gabapentin (Gabapentin 300 Mg Capsule) 300 mg PO Q6H PRN PRN Reason: anxiety Last Admin: 02/23/24 05:54 Dose: 300 mg Hydrocortisone (Hydrocortisone 2.5 % Rectal Cr 30 Gm Tube) 1 appl AL BID [facility] Last Admin: 02/23/24 08:34 Dose: Not Given Ibuprofen (Ibuprofen 600 Mg Tablet) 600 mg PO Q6H PRN PRN Reason: pain (pain scale 0-10) Last Admin: 02/22/24 17:20 Dose: 600 mg Loperamide HCl (Loperamide Hcl 2 Mg Capsule) 4 mg PO Q4H PRN PRN Reason: Diarrhea Last Admin: 02/19/24 09:08 Dose: 4 mg Magnesium Hydroxide (Milk Of Magnesia 30 Ml Oral.Susp) 30 ml PO DAILY PRN PRN Reason: Constipation Mirtazapine (Mirtazapine 7.5 Mg Tablet) 7.5 mg PO BEDTIME MRX1 [facility] Last Admin: 02/22/24 22:57 Dose: Not Given Nicotine (Nicotine 21 Mg Patch.Td24) 21 mg TRANSDERMA DAILY PRN PRN Reason: Nicotine Cravings Last Admin: 02/23/24 08:19 Dose: 21 mg Nicotine Polacrilex (Nicotine Polacrilex 2 Mg Gum) 4 mg BUCCAL Q2H PRN PRN Reason: Nicotine Cravings Ondansetron HCl (Ondansetron Odt 8 Mg Tab.Rapdis) 8 mg TRANSLINGU Q12H PRN PRN Reason: Nausea and Vomiting Last Admin: 02/19/24 08:43 Dose: 8 mg Venlafaxine HCl (Venlafaxine Hcl Er 75 Mg Cap.Er.24h) 75 mg PO DAILY DANTE Last Admin: 02/23/24 08:17 Dose: 75 mg Allergies Allergies Allergy/AdvReac Type Severity Reaction Status Date / Time Unable to Assess Allergy Verified 02/17/24 18:58 Assessment & Plan Assessment & Plan (1) MDD (major depressive disorder), recurrent episode, severe: Status: Acute Code(s): F33.2 - Major depressive disorder, recurrent severe without psychotic features (2) PTSD (post-traumatic stress disorder): Status: Acute Code(s): F43.10 - Post-traumatic stress disorder, unspecified (3) Opioid use disorder: Status: Acute Code(s): F11.90 - Opioid use, unspecified, uncomplicated Assessment and Plan: suboxone 8mg PRN dose available if patient requests daily dosing 8mg BID --patient reports this dose has been effective in the past PRN meds as appropriate (4) Alcohol use disorder: Status: Acute Code(s): F10.90 - Alcohol use, unspecified, uncomplicated (5) Cocaine use disorder: Status: Acute Code(s): F14.10 - Cocaine abuse, uncomplicated (6) Benzodiazepine abuse: Status: Acute Code(s): F13.10 - Sedative, hypnotic or anxiolytic abuse, uncomplicated (7) Homelessness: Status: Acute Code(s): Z59.00 - Homelessness unspecified Plan Patient is a 33-year-old female with history of MDD, PTSD, opiate use disorder, cocaine use disorder, alcohol use disorder and polysubstance use disorder who presented to ER due to suicidal ideation secondary to increased depression from not having her medications and life stressors. Plan: CV 15 minute safety checks Start: Effexor XR 37.5 mg p.o. daily Encourage groups Obtain collateral Consult to addiction medicine Referral to outpatient psychiatric providers Discharge planning 02/18: Active on unit, attending groups. pt reports feeling better with withdrawal symptoms after taking suboxone. She continues to report depression and anxiety; pt stated, I want to get into a program and go to a sober house then go to [place] so I can be sober when I'm with my kids . Pt reports sleeping well last night. denies SI/HI/VH/AH. 02/19: Keeping to self. Pt reports feeling better physically from withdrawal symptoms, however, continues to report anxiety and depression. Pt stated, I'm not even tired but I feel like I have no motivation to get out of bed and go to groups . Pt reports she will try to attend groups today rather than staying in her room. denies SI/HI/VH/AH. Increase Effexor to 75mg PO daily Start: Buspar 5mg PO BID 02/21/2024: Start gabapentin 100 mg as needed. Discontinue clonidine is unable to tolerate save due to blood pressure issues. 02/22/24: increase prn gabapentin and reintroduce clonidine prn (with hold parameters as feels its helpful compared to hydroxyzine). Does not feel hydroxyzine is helpful so will DC same. Second and last weekly dose of fluconazole 300mg ordered for Tinea Versicolor ordered 02/22: Patient reports she continues to feel anxious despite medication changes over the weekend; reports feeling okay other than anxious. denies SI/HI/VH/AH. When discussing discharging this week to possible program; pt stated, I won't go to the programs around here because other people told me they are shit. If I get discharged, I'll just walk right back into the ER and tell them I'm suicidal. I'll say what I have to say to get sectioned . Patient educated on: diagnosis, medication risk/benefits and therapeutic strategies Reason for continued inpatient stay Substantial Risk for: med/psych decompensation Time Spent With Patient Time: Total time managing care of this patient today _20___ minutes.
[2024-02-23] MEDS: Ibuprofen 600 MG TABLET PO (14:57)
[2024-02-23 15:36] VITALS: BP 111/66
[2024-02-23 16:45] VITALS: BP 98/59; PULSE 80; RESP 14; TEMP 37; O2SAT 98
[2024-02-23 19:45] VITALS: BP 84/50; PULSE 82; RESP 14; TEMP 36.9; O2SAT 97
[2024-02-23 20:15] VITALS: BP 98/56; PULSE 87
[2024-02-23] MEDS: Mirtazapine 7.5 MG TABLET PO (20:22)
[2024-02-24 03:04] LABS: CT PCR NOT DETECTED (Not Detect.); NG PCR NOT DETECTED (Not Detect.)
[2024-02-24 08:00] VITALS: BP 99/62; PULSE 83; RESP 16; TEMP 37.5; O2SAT 96
[2024-02-24] MEDS: Gabapentin 300 MG CAPSULE PO ×3 (08:46→20:37)
[2024-02-24] MEDS: Venlafaxine HCl ER 75 MG CAP.ER.24H PO (08:46)
[2024-02-24] MEDS: Buprenorphine/Naloxone 8/2 mg FILM 1 FILM SUBLINGUAL ×3 (08:46→17:20)
[2024-02-24] MEDS: Acetaminophen 325 MG TABLET 650 MG PO (08:49)
--- NOTE | 2024-02-24 09:50 | P.PNPSI_ITS ---
Subjective Subjective Date of Service: 02/24/24 Reason For Visit: Alcohol abuse Subjective Notes: Conditional Voluntary Interim History: Active on unit, social with peers. attending groups. Continues to report anxiety; when discussing medications pt stated, I'm not taking buspar because it makes me feel weird. I won't take Seroquel, Thorazine, hydroxyzine because they don't work . Discussed zyprexa; pt agreed. Pt requested lower dose of clonidine d/t drowsiness. Dose decreased to Clonidine 0.05mg PO BID PRN. Pt declined available bed at [facility]; pt stated, I'm not staying around here. I need to go back to [place]. I want to be closer to my dad . When discussing discharge tomorrow; pt stated, I'm just turning right around and coming back to the ER and telling them I'm suicidal so they can put in a sober house . pt denies SI/HI/VH/AH. Medication Compliance: Yes Side effects from medications: No Attending Groups: Yes Review of Systems Constitutional: Reports as per HPI Eyes: Reports as per HPI Reports as per HPI Cardiovascular: Reports as per HPI Respiratory: Reports as per HPI Gastrointestinal: Reports as per HPI Musculoskeletal: Reports as per HPI Skin/Breast: Reports as per HPI Reports as per HPI Psychiatric: Reports as per HPI Endocrine: Reports as per HPI Hematologic/Lymphatic: Reports as per HPI Allergic/Immunologic: Reports as per HPI Mental Status Exam Mental Status Exam Narrative: Pt is alert and oriented; behavior is cooperative and calm; dressed in casual attire; mood is described as anxious ; eye contact appropriate; Speech is normal rate, volume and not pressured; thought process is organized; Thought content is on tx; denies SI/HI/VH/AH. Diagnostics Vital Signs (24Hr): Vital Signs - 24 hr 02/23/24 15:36 02/23/24 16:45 02/23/24 19:45 Temperature 98.6 F 98.4 F Pulse Rate 80 82 Respiratory Rate 14 14 Blood Pressure 111/66 98/59 L 84/50 L Pulse Oximetry 98 97 Oxygen Delivery Method Room Air Room Air 02/23/24 20:15 02/24/24 08:00 Temperature 99.5 F Pulse Rate 87 83 Respiratory Rate 16 Blood Pressure 98/56 L 99/62 Pulse Oximetry 96 Oxygen Delivery Method Room Air BMI result Body Mass Index 19.6 Labs Labs: Laboratory Results - last 48 hr 02/23/24 17:54 Chlam trachomat DNA PCR NOT DETECTED N.gonorrhoeae DNA (PCR) NOT DETECTED Medications Medications Current Medications Acetaminophen (Acetaminophen 325 Mg Tablet) 650 mg PO Q6H PRN PRN Reason: Headache/Pain Mild Scale (1-3) Last Admin: 02/24/24 08:49 Dose: 650 mg Al Hydroxide/Mg Hydroxide (Magnesium Hydrox/Alum Hydrox 30 Ml Oral.Susp) 30 ml PO Q6H PRN PRN Reason: Heartburn/Nausea Last Admin: 02/18/24 15:58 Dose: 30 ml Albuterol Sulfate (Albuterol Sulfate 90 Mcg 8 Gm Inhaler) 2 puff INHALE RQ4H PRN PRN Reason: Shortness of Breath/Wheezing Buprenorphine/Naloxone (Buprenorphine/Naloxone 8/2 Mg Film) 1 film SUBLINGUAL DAILY PRN PRN Reason: Opiate Withdrawal Last Admin: 02/23/24 13:13 Dose: 1 film Buprenorphine/Naloxone (Buprenorphine/Naloxone 8/2 Mg Film) 1 film SUBLINGUAL BID@0800,1700 [facility] Last Admin: 02/24/24 08:46 Dose: 1 film Buspirone HCl (Buspirone Hcl 5 Mg Tablet) 5 mg PO BID [facility] Last Admin: 02/24/24 08:45 Dose: Not Given Clonidine HCl (Clonidine Hcl 0.1 Mg Tablet) 0.1 mg PO Q6H PRN; Protocol PRN Reason: if anxiety after gabapentin Last Admin: 02/23/24 15:36 Dose: 0.1 mg Dicyclomine HCl (Dicyclomine Hcl 10 Mg Capsule) 10 mg PO QIDACHS PRN PRN Reason: spasm Gabapentin (Gabapentin 300 Mg Capsule) 300 mg PO TID [facility] Last Admin: 02/24/24 08:46 Dose: 300 mg Hydrocortisone (Hydrocortisone 2.5 % Rectal Cr 30 Gm Tube) 1 appl LA BID [facility] Last Admin: 02/24/24 08:51 Dose: Not Given Ibuprofen (Ibuprofen 600 Mg Tablet) 600 mg PO Q6H PRN PRN Reason: pain (pain scale 0-10) Last Admin: 02/23/24 14:57 Dose: 600 mg Loperamide HCl (Loperamide Hcl 2 Mg Capsule) 4 mg PO Q4H PRN PRN Reason: Diarrhea Last Admin: 02/19/24 09:08 Dose: 4 mg Magnesium Hydroxide (Milk Of Magnesia 30 Ml Oral.Susp) 30 ml PO DAILY PRN PRN Reason: Constipation Mirtazapine (Mirtazapine 7.5 Mg Tablet) 7.5 mg PO BEDTIME MRX1 [facility] Last Admin: 02/23/24 23:03 Dose: Not Given Nicotine (Nicotine 21 Mg Patch.Td24) 21 mg TRANSDERMA DAILY PRN PRN Reason: Nicotine Cravings Last Admin: 02/23/24 08:19 Dose: 21 mg Nicotine Polacrilex (Nicotine Polacrilex 2 Mg Gum) 4 mg BUCCAL Q2H PRN PRN Reason: Nicotine Cravings Ondansetron HCl (Ondansetron Odt 8 Mg Tab.Rapdis) 8 mg TRANSLINGU Q12H PRN PRN Reason: Nausea and Vomiting Last Admin: 02/19/24 08:43 Dose: 8 mg Venlafaxine HCl (Venlafaxine Hcl Er 75 Mg Cap.Er.24h) 75 mg PO DAILY [facility] Last Admin: 02/24/24 08:46 Dose: 75 mg Allergies Allergies Allergy/AdvReac Type Severity Reaction Status Date / Time Unable to Assess Allergy Verified 02/17/24 18:58 Assessment & Plan Assessment & Plan (1) MDD (major depressive disorder), recurrent episode, severe: Status: Acute Code(s): F33.2 - Major depressive disorder, recurrent severe without psychotic features (2) PTSD (post-traumatic stress disorder): Status: Acute Code(s): F43.10 - Post-traumatic stress disorder, unspecified (3) Opioid use disorder: Status: Acute Code(s): F11.90 - Opioid use, unspecified, uncomplicated Assessment and Plan: * suboxone 8mg PRN dose available if patient requests * daily dosing 8mg BID --patient reports this dose has been effective in the past * PRN meds as appropriate (4) Alcohol use disorder: Status: Acute Code(s): F10.90 - Alcohol use, unspecified, uncomplicated (5) Cocaine use disorder: Status: Acute Code(s): F14.10 - Cocaine abuse, uncomplicated (6) Benzodiazepine abuse: Status: Acute Code(s): F13.10 - Sedative, hypnotic or anxiolytic abuse, uncomplicated (7) Homelessness: Status: Acute Code(s): Z59.00 - Homelessness unspecified Plan Patient is a 33-year-old female with history of MDD, PTSD, opiate use disorder, cocaine use disorder, alcohol use disorder and polysubstance use disorder who presented to ER due to suicidal ideation secondary to increased depression from not having her medications and life stressors. Plan: CV 15 minute safety checks Start: Effexor XR 37.5 mg p.o. daily Encourage groups Obtain collateral Consult to addiction medicine Referral to outpatient psychiatric providers Discharge planning 02/18: Active on unit, attending groups. pt reports feeling better with withdrawal symptoms after taking suboxone. She continues to report depression and anxiety; pt stated, I want to get into a program and go to a sober house then go to [place] so I can be sober when I'm with my kids . Pt reports sleeping well last night. denies SI/HI/VH/AH. 02/19: Keeping to self. Pt reports feeling better physically from withdrawal symptoms, however, continues to report anxiety and depression. Pt stated, I'm not even tired but I feel like I have no motivation to get out of bed and go to groups . Pt reports she will try to attend groups today rather than staying in her room. denies SI/HI/VH/AH. Increase Effexor to 75mg PO daily Start: Buspar 5mg PO BID 02/21/2024: Start gabapentin 100 mg as needed. Discontinue clonidine is unable to tolerate save due to blood pressure issues. 02/22/24: increase prn gabapentin and reintroduce clonidine prn (with hold parameters as feels its helpful compared to hydroxyzine). Does not feel hydroxyzine is helpful so will DC same. Second and last weekly dose of fluconazole 300mg ordered for Tinea Versicolor ordered 02/22: Patient reports she continues to feel anxious despite medication changes over the weekend; reports feeling okay other than anxious. denies SI/HI/VH/AH. When discussing discharging this week to possible program; pt stated, I won't go to the programs around here because other people told me they are shit. If I get discharged, I'll just walk right back into the ER and tell them I'm suicidal. I'll say what I have to say to get sectioned . 02/23: Active on unit, social with peers. attending groups. Continues to report anxiety; when discussing medications pt stated, I'm not taking buspar because it makes me feel weird. I won't take Seroquel, Thorazine, hydroxyzine because they don't work . Discussed zyprexa; pt agreed. Pt requested lower dose of clonidine d/t drowsiness. Dose decreased to Clonidine 0.05mg PO BID PRN. Pt declined available bed at [facility]; pt stated, I'm not staying around here. I need to go back to [place]. I want to be closer to my dad . When discussing discharge tomorrow; pt stated, I'm just turning right around and coming back to the ER and telling them I'm suicidal so they can put in a sober house . pt denies SI/HI/VH/AH. Patient educated on: diagnosis and medication risk/benefits Reason for continued inpatient stay Substantial Risk for: stable for discharge Time Spent With Patient Time: Total time managing care of this patient today _20___ minutes.
[2024-02-24 11:00] LABS: Bacterial Vaginosis PCR NEGATIVE (Negative); Candida Group PCR NOT DETECTED (Not Detect); Candida glab krusei PCR NOT DETECTED (Not Detect); Trichomonas vaginalis PCR NOT DETECTED (Not Detect)
[2024-02-24 11:46] VITALS: BP 135/87; PULSE 122
[2024-02-24] MEDS: cloNIDine HCL 0.1 MG TABLET PO (11:47)
[2024-02-24 15:59] VITALS: BP 99/60; PULSE 73; RESP 16; TEMP 37.1; O2SAT 97
[2024-02-24] MEDS: OLANZapine 5 MG TABLET PO (16:03)
[2024-02-24 20:00] VITALS: BP 113/65; PULSE 98; RESP 16; TEMP 36.4; O2SAT 98
[2024-02-24] MEDS: Mirtazapine 7.5 MG TABLET PO (20:37)
[2024-02-25 04:48] VITALS: BP 105/66; PULSE 88; O2SAT 97
[2024-02-25] MEDS: cloNIDine HCL 0.1 MG TABLET PO ×2 (04:51→11:28)
[2024-02-25 07:55] VITALS: BP 84/52; PULSE 86; RESP 16; TEMP 36.9; O2SAT 97
[2024-02-25] MEDS: Naloxone HCl Nasal TAKE HOME 4 MG SPRAY 8 MG NOSTRILALT (08:15)
[2024-02-25] MEDS: Venlafaxine HCl ER 75 MG CAP.ER.24H PO (08:15)
[2024-02-25] MEDS: Gabapentin 300 MG CAPSULE PO (08:15)
[2024-02-25] MEDS: Buprenorphine/Naloxone 8/2 mg FILM 1 FILM SUBLINGUAL (08:15)
[2024-02-25] MEDS: Ibuprofen 600 MG TABLET PO (08:19)
--- NOTE | 2024-02-25 09:37 | P.DS_ITS ---
DS: Providers Provider Date of Service: 02/25/24 Date of admission: 02/17/24 18:41 Date of discharge: 02/25/24 Primary care physician: Unknown Physician Admitting clinician: Ewa Hernandez Attending physician on admission: Shlomo Weiss Consults: 02/17/24 18:58 Consult to Hospitalist Routine Comment: Consulting Provider: 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 Has provider been notified: No Attending physician on discharge: Shlomo Weiss Discharging clinician: Ewa Hernandez DS: Diagnosis Discharge Diagnosis (1) MDD (major depressive disorder), recurrent episode, severe: Status: Acute (2) PTSD (post-traumatic stress disorder): Status: Acute (3) Opioid use disorder: Status: Acute (4) Alcohol use disorder: Status: Acute (5) Cocaine use disorder: Status: Acute (6) Benzodiazepine abuse: Status: Acute (7) Homelessness: Status: Acute DS: Medications Discharge Medications Home Medications: Previous Rx's ?Medication ?Instructions ?Recorded albuterol sulfate 90 mcg/actuation 2 puff inhalation RQ4H PRN 02/24/24 aerosol inhaler (Ventolin HFA) Shortness Of Breath/Wheezing 30 days #6.7 grams buprenorphine 8 mg-naloxone 2 mg 1 film sublingual BID@0800,1700 7 02/24/24 sublingual film (Suboxone) days #14 ea clonidine HCl 0.1 mg tablet 0.05 mg PO BID PRN if anxiety 02/24/24 after gabapentin 30 days #30 tabs gabapentin 300 mg capsule 300 mg PO TID 30 days #90 caps 02/24/24 mirtazapine 7.5 mg tablet 7.5 mg PO BEDTIME 30 days #30 tabs 02/24/24 venlafaxine 75 mg capsule,extended 75 mg PO DAILY 30 days #30 caps 02/24/24 release 24 hr Mental Status Exam Mental Status Exam Narrative: Pt is alert and oriented; behavior is cooperative and calm; dressed in casual attire; mood is described as anxious ; eye contact appropriate; Speech is normal rate, volume and not pressured; thought process is organized; Thought content is on tx; denies SI/HI/VH/AH. Data Data Completed and Pending Completed studies during hospitalization [Text1]: 02/23/24 17:54 Chlam trachomat DNA PCR NOT DETECTED N.gonorrhoeae DNA (PCR) NOT DETECTED T. vaginalis (PCR) NOT DETECTED Bact vaginosis (PCR) NEGATIVE C. krusei/glabrata (PCR) NOT DETECTED Christa group (PCR) NOT DETECTED DS: Summary Hospital Course Hospital Course: Patient is a 33-year-old female with history of MDD, PTSD, opiate use disorder, cocaine use disorder, alcohol use disorder and polysubstance use disorder who presented to ER due to suicidal ideation secondary to increased depression from not having her medications and life stressors. Per crisis report, patient arrived to ER making vague suicidal statements, reporting severe depression and anxiety. patient reports being discharged from [facility] 2 days ago and not receiving her medications. She reported experiencing brain zaps due to being off Effexor. denies SI/HI/AH/VH. She reports drinking daily and using various substances. Utox positive for cocaine and fentanyl. Patient does not have any outpatient psychiatric providers. Her last inpatient psychiatric admission was in 2008. During admission assessment, patient presents alert and oriented x3, calm and cooperative. Patient reports feeling anxious and depressed ; patient stated, I came to the hospital to detox and get mental health meds. I wake up with anxiety. I do not think anything is making me depressed, I have just always been depressed. I want to go to a substance abuse program . Patient reports drinking a sleeve of nips daily, using 5 bundles of fentanyl daily, smoking crack daily, taking benzodiazepines (xanax and ativan) and taking LSD every few days. denies SI/HI/VH/AH. She reports leaving a correctional facility on the and not receiving her medications while in the correctional facility. She can not recall past medications or dosages. However, she does reports she was taking Effexor recently. Patient reports it was difficult to tell if Effexor was beneficial due to continued substance use. She reports history of section 35 from 11/24/23-12/24/23; she reports relapsing due to going back to the same places and knowing the same people . Patient is requesting referrals to outpatient providers and being restarted on Effexor. Plan: CV 15 minute safety checks Start: Effexor XR 37.5 mg p.o. daily Encourage groups Obtain collateral Consult to addiction medicine Referral to outpatient psychiatric providers Discharge planning Active on unit, attending groups. pt reports feeling better with withdrawal symptoms after taking suboxone. She continues to report depression and anxiety; pt stated, I want to get into a program and go to a sober house then go to [place] so I can be sober when I'm with my kids . Pt reports sleeping well last night. denies SI/HI/VH/AH. Keeping to self. Pt reports feeling better physically from withdrawal symptoms, however, continues to report anxiety and depression. Pt stated, I'm not even tired but I feel like I have no motivation to get out of bed and go to groups . Pt reports she will try to attend groups today rather than staying in her room. denies SI/HI/VH/AH. Increase Effexor to 75mg PO daily Start: Buspar 5mg PO BID Start gabapentin 100 mg as needed. Discontinue clonidine is unable to tolerate save due to blood pressure issues. increase prn gabapentin and reintroduce clonidine prn (with hold parameters as feels its helpful compared to hydroxyzine). Does not feel hydroxyzine is helpful so will DC same. Second and last weekly dose of fluconazole 300mg ordered for Tinea Versicolor ordered Patient reports she continues to feel anxious despite medication changes over the weekend; reports feeling okay other than anxious. denies SI/HI/VH/AH. When discussing discharging this week to possible program; pt stated, I won't go to the programs around here because other people told me they are shit. If I get discharged, I'll just walk right back into the ER and tell them I'm suicidal. I'll say what I have to say to get sectioned . Active on unit, social with peers. attending groups. Continues to report anxiety; when discussing medications pt stated, I'm not taking buspar because it makes me feel weird. I won't take Seroquel, Thorazine, hydroxyzine because they don't work . Discussed zyprexa; pt agreed. Pt requested lower dose of liz nidine d/t drowsiness. Dose decreased to Clonidine 0.05mg PO BID PRN. Pt declined available bed at [facility]; pt stated, I'm not staying around here. I need to go back to [place]. I want to be closer to my dad . When discussing discharge tomorrow; pt stated, I'm just turning right around and coming back to the ER and telling them I'm suicidal so they can put in a sober house . pt denies SI/HI/VH/AH. Patient continues to report feeling anxious; she reports plan to present herself to [facility] to Section 35 herself. denies SI/HI/VH/AH. Pt overheard stating to peers she plans on leaving unit and walking into emergency room to report suicidal ideation to be readmitted to psychiatric unit. Time spent discussing smoking cessation with patient: 3 to 10 minutes Status at Discharge Cognitive/behavioral status at discharge: Patient was interviewed prior to discharge and found to be fully oriented and without SI or HI. Patient has insight and demonstrates good judgment in terms of wanting to pursue treatment. Patient has a safety plan that includes presenting to the closest ER or calling 911 if feeling unsafe. Functional status at discharge: independent ambulation Overall status at discharge: patient is back to baseline Time Spent with Patient Time attestation: Total time managing care of this patient today _20___ minutes. Time spent: Less than 30 minutes Discharge Plan Discharge Anticipated Discharge Date/Time: 02/25/24 10:00 Patient Disposition: Home, Self-Care Discharge Diagnosis: MDD, PTSD, opioid use d/o, cocaine use d/o, alcohol use d/o, benzodiazepine abuse Referrals: [facility] [Provider Group] - 1 Week (02-24-24 [facility] has been added to patients chart. Please call [phone] to schedule your follow up appt.) Discharge Medications: New venlafaxine 75 mg Capsule,Extended Release 24hr 75 mg PO DAILY 30 Days Qty: 30 0RF mirtazapine 7.5 mg Tablet 7.5 mg PO BEDTIME 30 Days Qty: 30 0RF albuterol sulfate [Ventolin HFA] 90 mcg/actuation Hfa Aerosol Inhaler 2 puff inhalation RQ4H PRN (Reason: Shortness Of Breath/Wheezing) 30 Days Qty: 6.7 0RF gabapentin 300 mg Capsule 300 mg PO TID 30 Days Qty: 90 0RF clonidine HCl 0.1 mg Tablet 0.05 mg PO BID PRN (Reason: if anxiety after gabapentin) 30 Days Qty: 30 0RF Protocol: Hold for SBP< HOLD for SBP < : 90 buprenorphine-naloxone [Suboxone] 8-2 mg Film 1 film sublingual BID@0800,1700 7 Days Qty: 14 0RF Discharge Orders: Discharge Order (Routine); Ordered 02/25/24 Ordered By: Ewa Hernandez Diet: Regular diet Activity on Discharge: As tolerated Stand Alone Forms: Patient Portal Discharge page, Community Support Print Language: Bangladeshi Care Plan Goals: Maintain mood and safe behaviors Take medications as prescribed Continue to pursue sobriety Practice coping skills Continue with outpatient providers and reach out to them as needed Health Concerns: Mood stability and behaviors Sobriety Plan of Treatment: Follow up with your PCP, psychiatric provider and other outpatient providers regarding above concerns Take medications as prescribed Assessment: Patient was interviewed prior to discharge and found to be fully oriented and without SI or HI. Patient has insight and demonstrates good judgment in terms of wanting to pursue treatment. Patient has a safety plan that includes presenting to the closest ER or calling 911 if feeling unsafe.
[2024-02-25] MEDS: OLANZapine 5 MG TABLET PO (10:49)
[2024-02-25] MEDS: Nicotine 21 MG PATCH.TD24 TRANSDERMA (10:54)
[2024-02-25 11:27] VITALS: BP 112/63; PULSE 119
== END 2024-02-25 14:14 | disposition home or self-care (01) | DRG 751 ==
PROVIDERS: Physician Assistant; Admitting Provider Psychiatry & Neurology Psychiatry; Responsible Provider Registered Nurse; Visit Provider Psychiatry & Neurology Psychiatry
DX: F33.2 Major depressive disorder, recurrent severe without psychotic features (principal); R45.851 Suicidal ideations; F43.10 Post-traumatic stress disorder, unspecified; F14.10 Cocaine abuse, uncomplicated; F13.10 Sedative, hypnotic or anxiolytic abuse, uncomplicated; F10.10 Alcohol abuse, uncomplicated; F17.210 Nicotine dependence, cigarettes, uncomplicated; J45.30 Mild persistent asthma, uncomplicated; F11.20 Opioid dependence, uncomplicated; F19.10 Other psychoactive substance abuse, uncomplicated; Z86.19 Personal history of other infectious and parasitic diseases; Z59.02 Unsheltered homelessness; Z71.6 Tobacco abuse counseling; Z79.899 Other long term (current) drug therapy
CPT/HCPCS: 0352U; 87491; 87493; 87591

== ENCOUNTER → 2024-02-17 18:41 | Outpatient (BNV) | payer OTHER, SELFPAY | PROVIDERS: Admitting Provider Psychiatry & Neurology Psychiatry; Responsible Provider Registered Nurse; Visit Provider Registered Nurse | DX: F33.2 Major depressive disorder, recurrent severe without psychotic features (principal); F43.11 Post-traumatic stress disorder, acute; F11.90 Opioid use, unspecified, uncomplicated; F10.90 Alcohol use, unspecified, uncomplicated | CPT/HCPCS: 90792; 99231; 99232 ==

== ENCOUNTER → 2024-02-17 18:41 | Outpatient (BNV) | payer MEDICAID, SELFPAY | PROVIDERS: Admitting Provider Psychiatry & Neurology Psychiatry; Visit Provider Physician Assistant | DX: Z00.8 Encounter for other general examination (principal); R19.7 Diarrhea, unspecified; N89.8 Other specified noninflammatory disorders of vagina | CPT/HCPCS: 99223 ==

== ENCOUNTER → 2024-02-17 18:41 | Outpatient (BNV) | payer MEDICAID, SELFPAY | PROVIDERS: Admitting Provider Psychiatry & Neurology Psychiatry; Responsible Provider Registered Nurse; Visit Provider Nurse Practitioner Psychiatric/Mental Health | DX: F11.90 Opioid use, unspecified, uncomplicated (principal) | CPT/HCPCS: 99231 ==

== ENCOUNTER 2024-02-25 17:06 | Emergency (ER) | payer OTHER, SELFPAY ==
--- NOTE | 2024-02-25 17:17 | ED.PSYCH ---
HPI - Psych General Chief Complaint: Psychiatric Symptoms Stated Complaint: Crisis Time Seen by Provider: 02/25/24 18:08 Source: patient Mode of arrival: ambulatory Limitations: no limitations History of Present Illness ED Provider: Rolly Umanzor PA-C HPI Narrative: 32-year-old female history of posttraumatic stress disorder, major depressive disorder, hepatitis-C, opioid use disorder, cocaine use disorder alcohol use disorder presents to ED for racing thoughts and feel like she was discharged too soon. Patient does not feel like she stable. Patient would like to be readmitted. Patient denies any suicidal or homicidal thoughts. Patient denies any physical complaint Related Data Previous Rx's ?Medication ?Instructions ?Recorded albuterol sulfate 90 mcg/actuation 2 puff inhalation RQ4H PRN 02/24/24 aerosol inhaler (Ventolin HFA) Shortness Of Breath/Wheezing 30 days #6.7 grams buprenorphine 8 mg-naloxone 2 mg 1 film sublingual BID@0800,1700 7 02/24/24 sublingual film (Suboxone) days #14 ea clonidine HCl 0.1 mg tablet 0.05 mg PO BID PRN if anxiety 02/24/24 after gabapentin 30 days #30 tabs gabapentin 300 mg capsule 300 mg PO TID 30 days #90 caps 02/24/24 mirtazapine 7.5 mg tablet 7.5 mg PO BEDTIME 30 days #30 tabs 02/24/24 venlafaxine 75 mg capsule,extended 75 mg PO DAILY 30 days #30 caps 02/24/24 release 24 hr Allergies Allergy/AdvReac Type Severity Reaction Status Date / Time clindamycin Allergy Vomiting Verified 02/25/24 17:21 erythromycin base Allergy Unknown Verified 02/25/24 17:21 [From Pediazole] naltrexone Allergy Rash Verified 02/25/24 17:21 sulfisoxazole Allergy Unknown Verified 02/25/24 17:21 [From Pediazole] Review of Systems Review of Systems: Racing thoughts Yes all other systems are reviewed and are negative PMFSH Past Medical History Medical History (Updated 02/26/24 @ 01:25 by ALAN Sanchez) Mild intermittent asthma Hepatitis C Polysubstance abuse Social History Social History Household Members: None Housing: Homeless Patient Tobacco Use Status: Current everyday Tobacco user Tobacco use type: Cigarette Cigarette Packs Per Day: 1.5 Cigarettes Per Day: 30.0 e-Cigarette/Vaping Use: Currently Using Substance Use Type: Crack/Cocaine and Other Advance Directives: No Advance Directives Information Provided: Yes service: No Sexual orientation: Straight/Heterosexual Physical Exam Vital Signs: Vital Signs: Last Vital Signs Temp 97.6 F 02/25/24 18:39 Pulse 109 H 02/25/24 18:39 Resp 18 02/26/24 06:17 BP 104/61 02/25/24 22:13 Pulse Ox 100 02/25/24 18:39 O2 Del Method Room Air 02/25/24 18:39 BMI result Body Mass Index 21.7 Const: General: cooperative, healthy appearing, comfortable, no acute distress, well developed, alert, awake and Physically active Orientation/consciousness: patient oriented x3 HEENT: Head: Yes normal to inspection, Yes No palpable skull fracture present, Yes normocephalic and Yes atraumatic Face and sinus: Yes normal facial exam, Yes sinuses nontender and Yes face symmetric Mouth: Normal oral and palatal mucosa present, lip normal and tongue normal Teeth and gingiva: dentition normal and gingiva normal Throat: Yes posterior oropharynx normal, Yes tonsils normal and Yes uvula midline Eyes: General: appearance normal, both eyes and all related structures Neck: Neck: Yes normal visual inspection, Yes full ROM and Yes no meningeal signs Chest: Chest palpation & inspection: normal inspection of the chest and normal palpation of entire chest wall Resp: Effort & Inspection: normal respiratory effort and able to speak in complete sentences Auscultation: clear to auscultation bilaterally Cardio: Jugular venous distension: no JVD Heart sounds: S1 normal heart sound present and S2 normal heart sound present GI: Inspection: Yes normal to inspection Palpation (GI): Soft to palpation, not firm, nontender, no guarding and not rigid : General: Yes no CVA tenderness Back/Spine/Pelvis: Back: no CVA tenderness and No back tenderness Skin: General skin exam: no rashes or lesions noted, elasticity normal and turgor normal Neuro: General: patient oriented x3, gait normal, tone normal, moves all extremities, Normal light touch and pain sensation, no meningeal signs, no focal motor deficits, CN's II-XI intact bilaterally and normal sensation to monofilament Extrem: General: Yes normal to inspection, Yes full ROM and Yes capillary refill normal Psych: Appearance: grossly normal, well kempt and not disheveled Course Course Course Narrative: This is an RME: Additional HPI, ROS, PE not included below will be deferred to primary provider. RME assessment and note performed by: Temi Lord PA-C 33-year-old female with history of MDD, PTSD, opiate use disorder, cocaine use disorder, alcohol use disorder and polysubstance use disorder who presented to ER due to suicidal ideation secondary to increased depression from not having her medications and life stressors, who was just discharged from inpatient psych this morning. Pt states that she sectioned herself from 02/16-. She states that she believes that she was discharged without being stable. Her meds are making her too tired. She has no aftercare set up. States that she won't be safe on the streets if her medications makes her tired. No SI/HI, AH/VH. States that she has this overwhelming anxiety. She states that she feels as though a midget is hanging on my neck . She states that she feels as though she is on auto remotely piloted vehicle controller, reporting racing thoughts. Does admit dental pain due to broken teeth. Plan: Labs, UA, further ER eval needed Medications Administered Generic Name Dose Route Start Last Admin Trade Name Freq PRN Reason Stop Dose Admin Buprenorphine/Naloxone 1 film 02/25/24 21:45 02/26/24 08:38 Buprenorphine/Naloxone 8/2 Mg Film SUBLINGUAL 1 film BID@0800,1700 DANTE Administration Clonidine HCl 0.05 mg 02/25/24 21:45 02/25/24 22:13 Clonidine Hcl 0.1 Mg Tablet PO 0.05 mg BID PRN Administration if anxiety after gabapentin Protocol Gabapentin 300 mg 02/25/24 22:00 02/26/24 08:38 Gabapentin 300 Mg Capsule PO 300 mg TID DANTE Administration Mirtazapine 7.5 mg 02/25/24 22:00 02/25/24 22:13 Mirtazapine 7.5 Mg Tablet PO 7.5 mg BEDTIME DANTE Administration Venlafaxine HCl 75 mg 02/26/24 09:00 02/26/24 08:38 Venlafaxine Hcl Er 75 Mg Cap.Er.24h PO 75 mg DAILY DANTE Administration Discontinued Medications Generic Name Dose Route Start Last Admin Trade Name Freq PRN Reason Stop Dose Admin Olanzapine 5 mg 02/25/24 20:11 02/25/24 20:16 Olanzapine 5 Mg Tablet PO 02/25/24 20:12 5 mg ONCE ONE Administration Medical Decision Making Medical Decision Making [facility] Narrative: 33-year-old female presents to ED states she does not feel stable wants to be readmitted. Patient states no physical complaints. Labs ordered care team consult placed. 1:22pm: Patient awaiting care team evaluation. Labs are normal baseline Differential Diagnosis Differential Diagnoses: The differential diagnosis associated with the presentation includes (Depression, anxiety) Admission/Observation Consideration of admission/observation: Escalation of care including admission/observation considered Lab Data [facility] Lab Attestation statement: I reviewed the patient's lab results. 02/25/24 18:18 02/25/24 18:18 Labs: Lab Results 02/25/24 02/25/24 Range/Units 18:04 18:18 WBC 5.6 (4.8-10.8) X10*3/uL RBC 3.67 L (4.20-5.50) X10*6/uL Hgb 12.2 (12.0-16.0) g/dl Hct 35.6 L (37.0-47.0) % MCV 97.0 (80.0-98.0) fL MCH 33.2 H (27.0-33.0) pg MCHC 34.3 (31.0-35.0) g/dl RDW 14.6 (11.0-16.0) % Plt Count 216 (160-400) X10*3/uL MPV 8.5 L (9.4-12.3) fL Immature Gran % (Auto) 0.5 H (0.0-0.4) % Neut % (Auto) 49.4 (45-73) % Lymph % (Auto) 38.9 (20-40) % Heard % (Auto) 8.7 (2-11) % Eos % (Auto) 1.6 (0-4) % Baso % (Auto) 0.9 (0-2) % Lymph # (Auto) 2.2 (1.2-4.9) X10*3/uL Heard # (Auto) 0.5 (0.1-1.2) X10*3/uL Eos # (Auto) 0.1 (0.0-0.4) X10*3/uL Baso # (Auto) 0.1 (0.0-0.2) X10*3/uL Abs Immat Gran (auto) 0.03 (0.00-0.03) X10*3/uL Absolute Neuts (auto) 2.8 (2.0-8.3) x10*3/uL Absolute Nucleated RBC 0.000 (0.0-0.012) X10*3/uL Nucleated RBC % (auto) 0.0 (0.0-0.2) /100WBC Sodium 143 (135-145) mmol/L Potassium 3.9 (3.3-5.1) mmol/L Chloride 107 (96-108) mmol/L Carbon Dioxide 28 (22-29) mmol/L Anion Gap 12 (12-20) BUN 22 H (9-16) mg/dL Creatinine 0.71 (0.5-1.4) mg/dL Estim Creat Clear Calc 101.4 Estimated GFR > 60 Random Glucose 99 (60-115) mg/dL Calcium 10.2 (8.4-10.2) mg/dL Magnesium 2.1 (1.6-2.6) mg/dL Total Bilirubin 0.2 (0.0-1.0) mg/dL Direct Bilirubin < 0.2 (0.0-0.5) mg/dL AST 60 H (5-31) U/L ALT 233 H (0-31) U/L Alkaline Phosphatase 62 (39-117) U/L Total Protein 7.6 (6.5-8.0) g/dL Albumin 4.5 (3.5-5.0) g/dL Urine Color Yellow Urine Appearance Cloudy Urine pH 6.0 (5.0-9.0) Ur Specific Dewitt >= 1.030 H (1.005-1.025) Urine Protein Negative (Neg-Trace) mg/dL Urine Glucose (UA) Negative (Negative) mg/dL Urine Ketones Negative (Negative) mg/dL Urine Blood Negative (Negative) Urine Nitrite Negative (Negative) Ur Leukocyte Esterase Negative (Negative) Urine Opiates Screen Not Detected (Not Detect) Ur Buprenorphine Scrn Positive H (Not Detect) ng/mL Ur Oxycodone Screen Not Detected (Not Detect) ng/mL Urine Methadone Screen Not Detected (Not Detect) ng/mL Urine Fentanyl Screen POSITIVE H (Not Detect) Ur Barbiturates Screen Not Detected (Not Detect) Ur Phencyclidine Scrn Not Detected (Not Detect) Ur Amphetamines Screen Not Detected (Not Detect) U Benzodiazepines Scrn Not Detected (Not Detect) Urine Cocaine Screen POSITIVE H (Not Detect) U Marijuana (THC) Screen Not Detected (Not Detect) Ethyl Alcohol < 10 mg/dL Independent Historian Clinical information obtained from an independent historian. History obtained from or confirmed by: Other (Patient) External Record Review External record reviewed: Other (Prior visits) Discharge Plan Discharge Clinical Impression: PTSD (post-traumatic stress disorder), MDD (major depressive disorder), recurrent episode, severe Patient Disposition: Still a Patient Prescriptions: No Action venlafaxine 75 mg Capsule,Extended Release 24hr 75 mg PO DAILY 30 Days Qty: 30 0RF mirtazapine 7.5 mg Tablet 7.5 mg PO BEDTIME 30 Days Qty: 30 0RF albuterol sulfate [Ventolin HFA] 90 mcg/actuation Hfa Aerosol Inhaler 2 puff inhalation RQ4H PRN (Reason: Shortness Of Breath/Wheezing) 30 Days Qty: 6.7 0RF gabapentin 300 mg Capsule 300 mg PO TID 30 Days Qty: 90 0RF clonidine HCl 0.1 mg Tablet 0.05 mg PO BID PRN (Reason: if anxiety after gabapentin) 30 Days Qty: 30 0RF Protocol: Hold for SBP< HOLD for SBP < : 90 buprenorphine-naloxone [Suboxone] 8-2 mg Film 1 film sublingual BID@0800,1700 7 Days Qty: 14 0RF Interventions: [place]-Suicide Risk Severity Scale Last Done: 02/26/24 02:32 Print Language: Citizen Of [place] ED Observation ED Observation Admit Comment: Seen by Behavioral health was on M5 and discharged yesterday and checked back in. She was given half-way information as she has no concerns for safety. We will discharge her home.
[2024-02-25 17:18] VITALS: BP 118/73; PULSE 127; RESP 18; TEMP 37.4; O2SAT 98; BMI 21.7
--- NOTE | 2024-02-25 18:15 | PC.NURSE ---
did control substance count with Nellie rn, suboxone/clonidine/gabapentin when to pharmacy
[2024-02-25 18:22] LABS: MANUAL DIFF FLAG NO
[2024-02-25 18:25] LABS: Basophils Absolute Auto 0.1 X10*3/uL (0.0-0.2); Basophils Percent Auto 0.9 % (0-2); Eosinophils Absolute Auto 0.1 X10*3/uL (0.0-0.4); Eosinophils Percent Auto 1.6 % (0-4); Hematocrit 35.6 % (37.0-47.0); Hemoglobin 12.2 g/dl (12.0-16.0); Imm Gran Abs Auto 0.03 X10*3/uL (0.00-0.03); Imm Gran Pct Auto 0.5 % (0.0-0.4); Lymphocytes Absolute Auto 2.2 X10*3/uL (1.2-4.9); Lymphocytes Percent Auto 38.9 % (20-40); Mean Corpuscular HGB Conc 34.3 g/dl (31.0-35.0); Mean Corpuscular Hemoglobin 33.2 pg (27.0-33.0); Mean Platelet Volume 8.5 fL (9.4-12.3); Monocytes Absolute Auto 0.5 X10*3/uL (0.1-1.2); Monocytes Percent Auto 8.7 % (2-11); Neutrophils Absolute Auto 2.8 x10*3/uL (2.0-8.3); Neutrophils Percent Auto 49.4 % (45-73); Platelet Count 216 X10*3/uL (160-400); Red Blood Count 3.67 X10*6/uL (4.20-5.50); Red Cell Distribution Width 14.6 % (11.0-16.0); White Blood Count 5.6 X10*3/uL (4.8-10.8)
[2024-02-25 18:27] LABS: Appearance Urine Cloudy; Color Urine Yellow; Glucose Urine UA Negative (Negative); Leukocyte Esterase Urine Negative (Negative); Nitrite Urine Negative (Negative); Specific Gravity - Urine >= 1.030 (1.005-1.025); Urine Blood Negative (Negative); Urine Ketones Negative (Negative); Urine Protein Negative (Neg-Trace)
[2024-02-25 18:37] LABS: Amphetamine Screen Urine Not Detected (Not Detect); Barbiturates, Urine Not Detected (Not Detect); Benzodiazepines Screen Urine Not Detected (Not Detect); Buprenorphine Scr Positive (Not Detect); Cannabinoid Screen Urine Not Detected (Not Detect); Cocaine Screen Urine POSITIVE (Not Detect); Fentanyl, urine POSITIVE (Not Detect); Methadone Screen, Urine Not Detected (Not Detect); Opiate Screen Urine Not Detected (Not Detect); Oxycodone Screen Urine Not Detected (Not Detect); Phencyclidine Screen Urine Not Detected (Not Detect)
[2024-02-25 18:39] VITALS: BP 104/61; PULSE 109; RESP 17; TEMP 36.4; O2SAT 100
[2024-02-25 18:40] LABS: Alanine Aminotransferase 233 U/L (0-31); Albumin Level 4.5 g/dL (3.5-5.0); Alkaline Phosphatase 62 U/L (39-117); Anion Gap 12 (12-20); Aspartate Amino Transferase 60 U/L (5-31); Bilirubin Direct < 0.2 mg/dL (0.0-0.5); Bilirubin Total 0.2 mg/dL (0.0-1.0); Blood Urea Nitrogen 22 mg/dL (9-16); Calcium 10.2 mg/dL (8.4-10.2); Carbon Dioxide 28 mmol/L (22-29); Chloride 107 mmol/L (96-108); Creatinine Clr Calc Pharmacy 101.4; Estimated Glomerular Filt Rate > 60; Ethanol < 10 mg/dL; Glucose Random 99 mg/dL (60-115); Magnesium 2.1 mg/dL (1.6-2.6); Potassium 3.9 mmol/L (3.3-5.1); Sodium 143 mmol/L (135-145); Total Protein 7.6 g/dL (6.5-8.0)
--- NOTE | 2024-02-25 19:09 | PC.NURSE ---
patient appears to remain at rest at present respirations are even and unlabored patient appears in no distress
[2024-02-25] MEDS: OLANZapine 5 MG TABLET PO (20:16)
[2024-02-25 22:13] VITALS: BP 104/61
[2024-02-25] MEDS: Mirtazapine 7.5 MG TABLET PO (22:13)
[2024-02-25] MEDS: Gabapentin 300 MG CAPSULE PO (22:13)
[2024-02-25] MEDS: cloNIDine HCL 0.1 MG TABLET 0.05 MG PO (22:13)
[2024-02-25] MEDS: Buprenorphine/Naloxone 8/2 mg FILM 1 FILM SUBLINGUAL (22:16)
[2024-02-26 06:17] VITALS: RESP 18
[2024-02-26] MEDS: Buprenorphine/Naloxone 8/2 mg FILM 1 FILM SUBLINGUAL (08:38)
[2024-02-26] MEDS: Venlafaxine HCl ER 75 MG CAP.ER.24H PO (08:38)
[2024-02-26] MEDS: Gabapentin 300 MG CAPSULE PO (08:38)
[2024-02-26 09:28] VITALS: BP 112/68; PULSE 104; RESP 16; TEMP 36.7; O2SAT 97
[2024-02-26] MEDS: cloNIDine HCL 0.1 MG TABLET 0.05 MG PO (09:31)
[2024-02-26 09:39] VITALS: BP 112/68; PULSE 104; RESP 16; TEMP 36.7; O2SAT 97
== END 2024-02-26 10:29 | disposition home or self-care (01) ==
PROVIDERS: Physician Assistant Medical; Emergency Provider Internal Medicine
DX: F33.2 Major depressive disorder, recurrent severe without psychotic features (principal); F43.10 Post-traumatic stress disorder, unspecified; R45.851 Suicidal ideations; K03.81 Cracked tooth; J45.20 Mild intermittent asthma, uncomplicated; F14.10 Cocaine abuse, uncomplicated; F13.10 Sedative, hypnotic or anxiolytic abuse, uncomplicated; F19.10 Other psychoactive substance abuse, uncomplicated; F11.20 Opioid dependence, uncomplicated; B19.20 Unspecified viral hepatitis C without hepatic coma; F17.210 Nicotine dependence, cigarettes, uncomplicated; Z59.00 Homelessness unspecified; Z79.899 Other long term (current) drug therapy
CPT/HCPCS: 36415; 80048; 80076; 80307; 81003; 83735; 85025; 99284